=== PATIENT | female | born 1980 | race Caucasian/White ===

== ENCOUNTER 2018-03-18 12:04 | Inpatient (IN) | payer OTHER ==
[2018-03-18] VITALS (30 sets, daily range): BP systolic 102–138; BP diastolic 38–95; PULSE 77–116; TEMP 36.4–37.6; O2SAT 92–100; Ht 162.6 cm; Wt 55.9 kg
[~2018-03-18] VITALS: Ht 162.6 cm; Wt 55.9 kg
--- NOTE | 2018-03-18 12:30 | EMERGENCY ROOM VISIT NOTE ---
History Report prepared by Ute: Dao Gomez Under the Supervision of: Dr. Juan Thornton M.D. First contact with patient: 12:15 Chief Complaint: GI ASSESSMENT Stated Complaint: ILLNESS History of Present Illness The patient is a 37 year old female who presents to the Emergency Room with complaints of a persistent illness that started around 4 days ago. Per the nursing staff, the patient has been having a headache, and has been taking Excedrin for that. The patient then started having diarrhea 4 days ago, and starting 2 days ago, has been nauseated with episodes of vomiting. Per the patient's step-father, the patient's vomit has been very dark in color, with a lot of food particles in it as well. The patient's stool has also been noted to be dark in color. She has been pale in appearance as well. Per the patient's step-father, the patient has been complaining of being lightheaded on-and off over the past few days, and today, the patient has seemed very lethargic. While helping put the patient's clothes on this morning, the patient's step-father noted that the patient may have passed out for a few seconds. The patient has no history of bleeding inside her abdomen. She has been taking some Pepto- Bismol over the past few days. Her blood sugar was noted to be 131 here. The patient currently says that she is very tired. Source of History: patient, family, nursing staff Onset: 4 days ago Position: other (global) Quality: other (illness) Timing: other (persistent) Associated Symptoms: + headache, + nausea, + vomiting, + diarrhea (dark in color), + fatigue Note: Associated symptoms: Pale. May have passed out this morning. Lightheadedness. Review of Systems See HPI for pertinent positives & negatives. A total of 10 systems reviewed and were otherwise negative. Past Medical & Surgical Medical Problems: (1) Mild intellectual disability Family History No pertinent family history Social History Smoking Status: Never Smoker Marital Status: single Housing Status: lives with family Occupation Status: employed Current/Historical Medications Scheduled Mqfvavw-Fhncwznkptmnp-Kqouaust (Excedrin Migraine), 1 DOSE PO UD Bismuth Subsalicylate (Pepto-Bismol), 1 DOSE PO UD Loperamide Hcl (Imodium), 1 DOSE PO UD Allergies Coded Allergies: No Known Allergies (Unverified , 4/18/18) Physical Exam Vital Signs Date Time Temp Pulse Resp B/P (MAP) Pulse Ox O2 Delivery O2 Flow Rate FiO2 03/18/18 13:04 113 28 103/35 03/18/18 12:49 114 31 03/18/18 12:44 95 Room Air 03/18/18 12:34 116 32 03/18/18 12:19 99 27 03/18/18 12:16 36.7 110 25 128/60 95 Room Air 03/18/18 12:13 103 03/18/18 12:08 128/60 Physical Exam GENERAL: Patient is in no acute distress. HEENT: No acute trauma, normocephalic atraumatic, mucous membranes dry, no nasal congestion, no scleral icterus. Dark vomitus staining on her lips. NECK: No stridor, no adenopathy, no meningismus, trachea is midline. LUNGS: Clear to auscultation bilaterally, no wheeze, no rhonchi, breath sounds equal. HEART: Tachycardic with a regular rhythm and a 2/6 systolic murmur. ABDOMEN: Soft, nontender, bowel sounds positive, no hernias, no peritonitis. RECTAL: Maroon-colored stool, heme positive. EXTREMITIES: No cyanosis or edema, full range of motion of all the joints without pain or difficulty, no signs for acute trauma. NEUROLOGIC: Oriented x 3, no acute motor or sensory deficits, no focal weakness. SKIN: Very pale. No rash, no jaundice, no diaphoresis. Medical Decision & Procedures ER Provider Diagnostic Interpretation: X-ray results as stated below per interpretation by me and the radiologist: CHEST ONE VIEW PORTABLE CLINICAL HISTORY: EVALUATE ALTERED MENTAL STATUS/WEAKNESS mental status change COMPARISON STUDY: No previous studies for comparison. FINDINGS: The bones soft tissues and hemidiaphragms are normal. The cardiomediastinal silhouette is normal. The lungs are clear. The pulmonary vasculature is normal. IMPRESSION: Negative chest. The above report was generated using voice recognition software. It may contain grammatical, syntax or spelling errors. Electronically signed by: Jarrod Dean M.D. 03/18/2018 12:37 PM Dictated Date/Time: 03/18/2018 12:37 PM Laboratory Results 03/18/18 12:20 Red Blood Count 1.66, Mean Corpuscular Volume 59.0, Mean Corpuscular Hemoglobin 15.7, Mean Corpuscular Hemoglobin Concent 26.5, Neutrophils (%) (Auto) 90.0, Lymphocytes (%) (Auto) 7.0, Monocytes (%) (Auto) 2.6, Eosinophils (%) (Auto) 0.0 , Basophils (%) (Auto) 0.1, Neutrophils # (Auto) 16.83, Lymphocytes # (Auto) 1.31, Monocytes # (Auto) 0.49, Eosinophils # (Auto) 0.00, Basophils # (Auto) 0.01 03/18/18 12:20 Test 03/18/18 12:20 White Blood Count 18.69 K/uL (4.8-10.8) Red Blood Count 1.66 M/uL (4.2-5.4) Hemoglobin 2.6 g/dL (12.0-16.0) Hematocrit 9.8 % (37-47) Mean Corpuscular Volume 59.0 fL (80-100) Mean Corpuscular Hemoglobin 15.7 pg (25-34) Mean Corpuscular Hemoglobin Concent 26.5 g/dl (32-36) Platelet Count 505 K/uL (130-400) Neutrophils (%) (Auto) 90.0 % Lymphocytes (%) (Auto) 7.0 % Monocytes (%) (Auto) 2.6 % Eosinophils (%) (Auto) 0.0 % Basophils (%) (Auto) 0.1 % Neutrophils # (Auto) 16.83 K/uL (1.4-6.5) Lymphocytes # (Auto) 1.31 K/uL (1.2-3.4) Monocytes # (Auto) 0.49 K/uL (0.11-0.59) Eosinophils # (Auto) 0.00 K/uL (0-0.5) Basophils # (Auto) 0.01 K/uL (0-0.2) Immature Granulocyte % (Auto) 0.3 % Immature Granulocyte # (Auto) 0.05 K/uL (0.00-0.02) Nucleated RBC Absolute Count (auto) 0.04 K/uL (0-0) Nucleated Red Blood Cells % 0.2 % Polychromasia 1+ Hypochromasia PRESENT Anisocytosis PRESENT Microcytosis PRESENT Prothrombin Time 14.1 SECONDS (9.0-12.0) Prothromb Time International Ratio 1.4 (0.9-1.1) Activated Partial Thromboplast Time 20.8 SECONDS (21.0-31.0) Partial Thromboplastin Ratio 0.8 Anion Gap 22.0 mmol/L (3-11) Est Creatinine Clear Calc Drug Dose 43.4 ml/min Estimated GFR () 49.9 Estimated GFR (Non- 43.0 BUN/Creatinine Ratio 22.0 (10-20) Calcium Level 8.4 mg/dl (8.5-10.1) Magnesium Level 2.2 mg/dl (1.8-2.4) Total Bilirubin 0.2 mg/dl (0.2-1) Aspartate Amino Transf (AST/SGOT) 9 U/L (15-37) Alanine Aminotransferase (ALT/SGPT) 16 U/L (12-78) Alkaline Phosphatase 54 U/L (45-117) Troponin I 0.077 ng/ml (0-0.045) Total Protein 5.8 gm/dl (6.4-8.2) Albumin 3.0 gm/dl (3.4-5.0) Globulin 2.8 gm/dl (2.5-4.0) Albumin/Globulin Ratio 1.1 (0.9-2) Thyroid Stimulating Hormone (TSH) 0.008 uIu/ml (0.300-4.500) Free Thyroxine 1.51 ng/dl (0.80-1.60) Human Chorionic Gonadotropin, Qual NEG (NEG) Laboratory results reviewed by me. Medications Administered Medications (Trade) Dose Ordered Sig/Bal Route Start Time Stop Time Status Last Admin Dose Admin Pantoprazole Sodium 80 mg/ Dextrose 120 ml @ 480 mls/hr TODAY@1230 ONCE IV 03/18/18 12:45 03/18/18 12:59 DC 03/18/18 12:56 480 MLS/HR Pantoprazole Sodium 40 mg/ Dextrose 100 ml @ 20 mls/hr Q5H IV 03/18/18 13:00 03/18/18 17:59 DC 03/18/18 12:56 20 MLS/HR Diphenhydramine HCl (Benadryl Inj) 25 mg NOW STAT IV 03/18/18 12:33 03/18/18 12:35 DC 03/18/18 13:33 25 MG ECG Per My Interpretation Indication: vomiting Rate (beats per minute): 104 Rhythm: sinus tachycardia Findings: other (some lateral ST elevation likely consistent with early repolarization, no PVCs) ED Course 1216: The patient was evaluated in room C2B. A complete history and physical exam was performed. 1221: Protonix IV Bolus/Drip 1 ea IV. 1236: A rectal exam revealed maroon-colored stool, heme positive. Upon reexamination the patient is resting. I discussed results and treatment plan with the patient and her step-father. They verbalize agreement and understanding. The patient will be evaluated for further management. 1241: I discussed the patient with Sheryl LEAL. 1243: Discussed the patient's case with Milagro Webb. The patient will be evaluated for further management. 1245: Pantoprazole Sodium 80 mg/Dextrose 120 ml @ 480 mls/hr IV. 1247: I discussed the patient with Juan Zamorano PA-C, [facility] [place] mechanic welder. 1253: I discussed the patient with Dr. Gamaliel Live GI. He says he will probably scope the patient tomorrow. 1300: Pantoprazole Sodium 40 mg/Dextrose 100 ml @ 20 mls/hr IV. 1320: I reevaluated and updated the patient. Medical Decision Differential diagnosis includes but is not limited to upper or lower GI bleeding , dehydration, electrolyte imbalance, anemia, viral illness, UTI, intestinal infection, pneumonia. The patient has a leukocytosis at 18,000, this could be consistent with infection or just the stress of her presentation. The patient is significantly anemic with a hemoglobin of 2.6. Renal panel testing shows renal insufficiency/ failure. No hepatitis. No concerning coagulopathy. The TSH was low but the T4 was normal. Chest film did not show CHF or pneumonia, no free air. EKG showed a sinus tachycardia, there was some early repolarization. Cardiac enzyme testing 1 did show a mild troponin elevation, likely consistent with the stress of her presentation. Rectal exam showed dark maroon stool, the test was heme positive. The patient had coffee appearing emesis staining her lips. The patient presents with vomiting and diarrhea. She was quite pale and is quite anemic. She likely has an upper GI bleed, she has been using a lot of Excedrin lately. The patient was aggressively managed. She received 1.5 L of IV saline, she was ordered for 4 units of packed red blood cells, 2 units were ordered to be given/ started in the ED. She was ordered for IV Benadryl as premedication for the red blood cell transfusion. She received IV Zofran, IV Protonix as a bolus and then was placed on an IV Protonix drip. The patient is critically ill. I spoke with the patient and her stepfather. I spoke with case management. I had a discussion with the agriculture technician on- call, the ICU attending and the on-call hospitalist. Patient seems to be improving with the treatment noted above. Medication Reconcilliation Current Medication List: was personally reviewed by me Blood Pressure Screening Patient's blood pressure: Normal blood pressure Consults Time Called: 1240 Consulting Physician: Milagro Webb Returned Call: 1243 Discussed the patient's case with Milagro Webb. The patient will be evaluated for further management. Additional Consults: Time Called: 1238 Consulted Physician: Sheryl LEAL Returned Call: 1241 Additional Comments: I discussed the patient with Sheryl LEAL. Time Called: 1244 Consulted Physician: KRISTOFER Warren PA-C mechanic welder Returned Call: 1247 Additional Comments: I discussed the patient with KRISTOFER Warren PA-C mechanic welder. Impression Primary Impression: GI bleeding Additional Impressions: Severe anemia Nausea, vomiting and diarrhea Syncope Critical Care I have personally spent greater than 40 minutes of critical care time in the direct management of this patient. This includes bedside care, interpretation of diagnostic studies, and testing, discussion with consultants, patient, and family members, and other required patient management activities. This 40 minutes is in excess of all separately billable procedures. Scribe Attestation The scribe's documentation has been prepared under my direction and personally reviewed by me in its entirety. I confirm that the note above accurately reflects all work, treatment, procedures, and medical decision making performed by me. Departure Information Dispostion Being Evaluated By Hospitalist Referrals Jeb Friedman III, M.D. (PCP) Patient Instructions My [facility] Problem Qualifiers Primary Impression: GI bleeding GI bleed type/associated pathology: unspecified gastrointestinal hemorrhage type Qualified Codes: K92.2 - Gastrointestinal hemorrhage, unspecified Additional Impressions: Syncope Syncope type: unspecified Qualified Codes: R55 - Syncope and collapse
[2018-03-18] MEDS ORDERED: DiphenhydrAMINE HCL 50 MG/ML VIAL IV STA (12:33)
[2018-03-18 12:39] LABS: HEMATOCRIT 9.8 % (37-47); HEMOGLOBIN 2.6 g/dL (12.0-16.0); MEAN CORPUSCULAR HEMOGLOBIN 15.7 pg (25-34); MEAN CORPUSCULAR HGB CONC 26.5 g/dl (32-36); NUCLEATED RED BLOOD CELL ABS 0.04 K/uL (0-0); PLATELET COUNT 505 K/uL (130-400); WHITE BLOOD COUNT 18.69 K/uL (4.8-10.8)
--- NOTE | 2018-03-18 12:39 | DIAGNOSTIC IMAGING REPORT ---
CHEST ONE VIEW PORTABLE CLINICAL HISTORY: EVALUATE ALTERED MENTAL STATUS/WEAKNESS mental status change COMPARISON STUDY: No previous studies for comparison. FINDINGS: The bones soft tissues and hemidiaphragms are normal. The cardiomediastinal silhouette is normal. The lungs are clear. The pulmonary vasculature is normal. IMPRESSION: Negative chest. The above report was generated using voice recognition software. It may contain grammatical, syntax or spelling errors. Electronically signed by: Jarrod Dean M.D. 03/18/2018 12:37 PM Dictated Date/Time: 03/18/2018 12:37 PM
[2018-03-18 12:44] LABS: INR 1.4 (0.9-1.1); PTT PATIENT 20.8 SECONDS (21.0-31.0)
[2018-03-18] MEDS ORDERED: PANTOprazole INJ 80 MG in DEXTROSE 5% 100ML IV ONE (12:45)
[2018-03-18 12:50] LABS: CALCIUM 8.4 mg/dl (8.5-10.1); CREATININE 1.52 mg/dl (0.60-1.20); POTASSIUM 3.7 mmol/L (3.5-5.1)
[2018-03-18] MEDS ORDERED: SODIUM CHLORIDE 0.9% 500ML 500 ML IV STA (12:57)
[2018-03-18] MEDS ORDERED: SODIUM CHLORIDE 0.9% 1000ML 1,000 ML IV STA (12:57)
[2018-03-18] MEDS ORDERED: PANTOprazole INJ 40 MG in DEXTROSE 5% 100ML IV SCH (13:00)
[2018-03-18] MEDS ORDERED: ONDANSETRON INJ 2 MG/ML 2 ML VIAL IV STA (13:02)
[2018-03-18 13:04] LABS: TOTAL PROTEIN 5.8 gm/dl (6.4-8.2)
[2018-03-18 13:07] LABS: BASO % 0.1 %; BASO ABS # 0.01 K/uL (0-0.2); IG# 0.05 K/uL (0.00-0.02); LYMPH ABS # 1.31 K/uL (1.2-3.4); MONO % 2.6 %; MONO ABS # 0.49 K/uL (0.11-0.59); NEUT ABS # 16.83 K/uL (1.4-6.5)
[2018-03-18] MEDS ORDERED: ICU PROTOCOL FOR HYPERGLYCEMIA PRN (13:15)
[2018-03-18] MEDS ORDERED: ASPI-390 PO (13:41)
[2018-03-18] MEDS ORDERED: IMD/2 PO (13:41)
[2018-03-18] MEDS ORDERED: BISM262S7 PO (13:41)
[2018-03-18] MEDS: SODIUM CHLORIDE 0.9% 1000ML 1,000 ML IV SCH ×2 (13:58→18:07)
--- NOTE | 2018-03-18 14:29 | History and Physical ---
History & Physical Date & Time of Service: Mar 18, 2018 ~ 13:00 Chief Complaint: Altered mental status, vomiting, diarrhea Primary Care Physician: Jeb Friedman III, M.D. History of Present Illness 37-year-old female who presents to the ER with altered mental status, vomiting, diarrhea. History is obtained from patient's father who is the bedside. Patient does have a mild underlying intellectual disability. He reports that over the past couple days patient has not felt well and has reported lightheadedness, dizziness, nausea, vomiting, diarrhea. He reports she has had several episodes of emesis. He describes it as dark and coffee-ground like. Her stools have also been very dark/black as well. This morning he found the patient and reports that she was extremely weak and also was not responding well. She takes a lot of Excedrin Migraine for headaches. Also reports she has been taking a lot of Mylanta over the past couple weeks for GI upset. During exam, patient is lethargic but arouses to verbal stimuli. She responds to simple yes/no questions. She denies fever and chills. No chest pain or shortness of breath. She denies urinary symptoms. In the ED, patient is found to have a hemoglobin of 2.6. Blood pressures have been relatively stable and heart rate has been in the 110's to 120s. Patient was given IVF and started a Protonix drip. She was also typed and crossed for blood. Past Medical/Surgical History Medical Problems: (1) Mild intellectual disability Family History FH: HTN (hypertension) MOTHER FH: skin cancer FATHER Social History Smoking Status: Never Smoker Alcohol Use: none Marital Status: single Housing status: lives with family Occupational Status: employed Immunizations History of Tetanus Vaccine?: Yes Tetanus Immunization Date: Feb 24, 2007 History of Hepatitis B Vaccine: Yes Hepatitis Immunization Date: Nov 18, 1995 Allergies Coded Allergies: No Known Allergies (Unverified , 03/18/18) Home Medications Scheduled Ktfjbqx-Qbsudwsbiispk-Uhlywctp (Excedrin Migraine), 1 DOSE PO UD Bismuth Subsalicylate (Pepto-Bismol), 1 DOSE PO UD Loperamide Hcl (Imodium), 1 DOSE PO UD Review of Systems ROS per HPI, all other systems reviewed and negative Physical Exam Vital Signs Date Time Temp Pulse Resp B/P (MAP) Pulse Ox O2 Delivery O2 Flow Rate FiO2 03/18/18 13:57 36.4 116 20 112/38 97 2.0 03/18/18 13:56 36.4 115 03/18/18 13:46 36.8 115 30 112/38 03/18/18 13:04 113 28 103/35 03/18/18 12:49 114 31 03/18/18 12:44 95 Room Air 03/18/18 12:34 116 32 03/18/18 12:19 99 27 03/18/18 12:16 36.7 110 25 128/60 95 Room Air 03/18/18 12:13 103 03/18/18 12:08 128/60 General Appearance: WD/WN, + moderate distress Head: normocephalic, atraumatic Eyes: normal inspection, EOMI, sclerae normal ENT: hearing grossly normal, + pertinent finding (Mucous membranes dry) Neck: supple, no JVD, trachea midline Respiratory/Chest: lungs clear, normal breath sounds, no respiratory distress Cardiovascular: no edema, normal peripheral pulses, + tachycardia (Regular rhythm) Abdomen/GI: normal bowel sounds, non tender, soft, no organomegaly Extremities/Musculoskelatal: normal inspection, no calf tenderness, normal capillary refill Neurologic/Psych: no motor/sensory deficits, oriented x 3, + pertinent finding (Mildly lethargic, arouses easily to verbal stimuli, answers simple yes/no questions) Skin: warm/dry, + pallor Diagnostics Laboratory Results Results Past 24 Hours Test 03/18/18 12:20 Range/Units White Blood Count 18.69 4.8-10.8 K/uL Red Blood Count 1.66 4.2-5.4 M/uL Hemoglobin 2.6 12.0-16.0 g/dL Hematocrit 9.8 37-47 % Mean Corpuscular Volume 59.0 80-100 fL Mean Corpuscular Hemoglobin 15.7 25-34 pg Mean Corpuscular Hemoglobin Concent 26.5 32-36 g/dl Platelet Count 505 130-400 K/uL Neutrophils (%) (Auto) 90.0 % Lymphocytes (%) (Auto) 7.0 % Monocytes (%) (Auto) 2.6 % Eosinophils (%) (Auto) 0.0 % Basophils (%) (Auto) 0.1 % Neutrophils # (Auto) 16.83 1.4-6.5 K/uL Lymphocytes # (Auto) 1.31 1.2-3.4 K/uL Monocytes # (Auto) 0.49 0.11-0.59 K/uL Eosinophils # (Auto) 0.00 0-0.5 K/uL Basophils # (Auto) 0.01 0-0.2 K/uL Immature Granulocyte % (Auto) 0.3 % Immature Granulocyte # (Auto) 0.05 0.00-0.02 K/uL Nucleated RBC Absolute Count (auto) 0.04 0-0 K/uL Nucleated Red Blood Cells % 0.2 % Polychromasia 1+ Hypochromasia PRESENT Anisocytosis PRESENT Microcytosis PRESENT Prothrombin Time 14.1 9.0-12.0 SECONDS Prothromb Time International Ratio 1.4 0.9-1.1 Activated Partial Thromboplast Time 20.8 21.0-31.0 SECONDS Partial Thromboplastin Ratio 0.8 Sodium Level 138 136-145 mmol/L Potassium Level 3.7 3.5-5.1 mmol/L Chloride Level 103 98-107 mmol/L Carbon Dioxide Level 13 21-32 mmol/L Anion Gap 22.0 3-11 mmol/L Blood Urea Nitrogen 34 7-18 mg/dl Creatinine 1.52 0.60-1.20 mg/dl Est Creatinine Clear Calc Drug Dose 43.4 ml/min Estimated GFR () 49.9 Estimated GFR (Non- 43.0 BUN/Creatinine Ratio 22.0 10-20 Random Glucose 144 70-99 mg/dl Calcium Level 8.4 8.5-10.1 mg/dl Magnesium Level 2.2 1.8-2.4 mg/dl Total Bilirubin 0.2 0.2-1 mg/dl Aspartate Amino Transf (AST/SGOT) 9 15-37 U/L Alanine Aminotransferase (ALT/SGPT) 16 12-78 U/L Alkaline Phosphatase 54 45-117 U/L Troponin I 0.077 0-0.045 ng/ml Total Protein 5.8 6.4-8.2 gm/dl Albumin 3.0 3.4-5.0 gm/dl Globulin 2.8 2.5-4.0 gm/dl Albumin/Globulin Ratio 1.1 0.9-2 Thyroid Stimulating Hormone (TSH) 0.008 0.300-4.500 uIu/ml Free Thyroxine 1.51 0.80-1.60 ng/dl Human Chorionic Gonadotropin, Qual NEG NEG Microbiology Results 03/18/18 MRSA DNA Surveillance Screen, Received Pending Diagnostic Radiology CXR IMPRESSION: Negative chest. Impression Assessment and Plan PROFOUND ANEMIA UPPER GI BLEED -Admit to ICU -Patient presenting with altered mental status, vomiting, diarrhea; in the ED found to have a hemoglobin of 2.6 -Per father's report, patient has been taking several doses of Excedrin Migraine for headaches; suspect NSAID induced gastritis -Heart rate elevated in the 110's to 120s, BP currently stable -GI notified by ED staff -Has been typed and crossed for 6 units, begin transfusions BRIGITTE -Protonix drip -Case discussed with Dr. Mcelroy ELEVATED TROPONIN -Mildly elevated at 0.077 -Likely demand ischemia from profound anemia -Will continue to cycle cardiac enzymes -EKG shows early repolarization changes, again likely due to profound anemia ABNORMAL TSH -Noted normal free T4 -Recommend rechecking once acute illness has resolved DVT PROPHYLAXIS -SCDs due to profound anemia DISPOSITION -In my clinical judgment this beneficiary meets acute admission criteria, established by [facility], that includes being hospitalized through two midnights. ADDENDUM: I have seen and examined the patient and agree with the assessment and plan as above. The patient is going to the ICU for resuscitation with scope by GI soon after. Likely cause NSAIDs vs poss heavy ETOH use (per father has some h/o binge drinking in the past), and patient has been taking Imodium/ Pepto likely at high amounts to treat intermittent diarrhea. Pepto is a salicylate and could be contributing to NSAID load here. Apprec ICU management. DO Kasie Ochoa minutes of critical care time includes assessment of patient, discussion with family and staff, review of records and lab/study review. Resuscitation Status VTE Prophylaxis Will order VTE Prophylaxis: Yes Note Total Time: Critical Care 30 - 74 minutes
--- NOTE | 2018-03-18 14:56 | GASTROINTESTINAL CONSULTATION ---
DATE OF CONSULTATION: 03/18/2018 REASON FOR CONSULTATION: Severe anemia and GI bleeding. HISTORY OF PRESENT ILLNESS: The patient is a 37-year-old female who has been taking Excedrin almost on a daily basis for several years for headaches. Over the last 4 days, she has been taking it more than once a day. She has been experiencing worsening headaches and weakness and today was passing out and her father brought her to the hospital. She really is not complaining of any significant abdominal pain, although she has been taking Pepto-Bismol which has turned her stool somewhat black. She did vomit a little bit of blood at home which was dark in color. She has not had any previous episodes of similar symptoms. PAST MEDICAL HISTORY: Remarkable only for learning disability. MEDICATION AT HOME: Excedrin as needed. ALLERGIES: None. FAMILY HISTORY: Negative. SOCIAL HISTORY: The patient has got a learning disability, but she does work, lives at home. She is not . REVIEW OF SYSTEMS: Positive for fatigue. PHYSICAL EXAMINATION: GENERAL: The patient is quite pale, lying in bed. VITAL SIGNS: Blood pressure is 128/60, pulse 110, temperature 36.7, respirations 25, room air saturations 95%. HEENT: Conjunctivae and mucous membranes in her mouth are very very pale. SKIN: Pale. LUNGS: Clear. HEART: Tachycardic. ABDOMEN: Soft. There are no scars. No masses, tenderness, or hepatosplenomegaly. RECTAL: Exam in the Emergency Room showed marooned stool, which was heme positive. NEUROLOGIC: Nonfocal. LABORATORIES: Remarkable for hemoglobin of 2.6, platelets 505,000, white count 18.69, BUN 32, creatinine 1.52. The patient is scheduled to receive 3 units of red blood cells and has been started on IV fluids and pantoprazole. IMPRESSION: The patient most likely has an upper gastrointestinal bleed, probably from an ulcer which has been developing over a long period of time as her MCV is low at 59. This is probably related to her Excedrin, which contains aspirin. At this point, the Excedrin is being held. She has been started on Protonix. As long as she remains stable, we will continue to resuscitate her with IV fluids, blood products, and Protonix and schedule her for an EGD tomorrow for further evaluation.
--- NOTE | 2018-03-18 16:07 | Critical Care Consultation ---
Critical Care Consultation Date of Consultation: Mar 18, 2018. Attending Physician: Carlos Virk M.D. Reason for Consultation: GI bleeding. History of Present Illness Dear Milagro: Thank you for your kind referral of Mr. Posada to ICU. This is a 37-year-old female with no significant past medical history, she does have apparently in to the actual incapability, has been brought to the ED by her parents after she has been having nausea vomiting with coffee-ground material and melanotic stool. The patient has been feeling sick for the past few days and apparently she has been taking Excedrin for headache and Mylanta for epigastric pain. The patient on arrival to the ED she was found to be lethargic and pale, her blood pressure has been maintained but she was tachycardic. The patient is a poor historian however she denies any pain at the moment. Her lab work revealed hemoglobin of 2.9 and the patient was started on type and cross and blood transfusion and admitted to the ICU for further management. Her blood pressure has been in the normal range. The patient in the ICU denies any pain, appears very lethargic, very pale as well, did not have any bowel movement, her blood pressure has been maintained and 118/80 with a heart rate of 91. The patient did not have any syncope, palpitation, headache, or near syncopal episodes. Family History FH: HTN (hypertension) MOTHER FH: skin cancer FATHER Social History Smoking Status: Never Smoker Alcohol Use: none Marital Status: single Housing Status: lives with family Occupation Status: employed Allergies Coded Allergies: No Known Allergies (Unverified , 03/18/18) Home Medications Scheduled Ffppsgb-Txyycafeufuoh-Lwgmmtiw (Excedrin Migraine), 1 DOSE PO UD Bismuth Subsalicylate (Pepto-Bismol), 1 DOSE PO UD Loperamide Hcl (Imodium), 1 DOSE PO UD Current Inpatient Medications Current Inpatient Medications Medications (Trade) Dose Ordered Sig/Bal Route Start Time Stop Time Status Last Admin Dose Admin Pantoprazole Sodium 40 mg/ Dextrose 100 ml @ 20 mls/hr Q5H IV 03/18/18 13:00 03/18/18 17:59 03/18/18 12:56 20 MLS/HR Miscellaneous Information (Icu Protocol For Hyperglycemia) 1 ea PRN PRN N/A 03/18/18 13:15 03/20/18 13:14 Sodium Chloride 1,000 ml @ 125 mls/hr Q8H IV 03/18/18 13:58 04/17/18 13:57 Pantoprazole Sodium 40 mg/ Dextrose 100 ml @ 20 mls/hr Q5H IV 03/18/18 18:00 04/17/18 17:59 Review of Systems Constitutional: No fever, No chills, No sweats, No weight loss, No weakness, No fatigue, No problem reported Eyes: No worsening of vision, No eye pain, No redness, No discharge, No diplopia, No problem reported ENT: No hearing loss, No unusual epistaxis, No nasal symptoms, No sore throat, No tinnitus, No dental problems, No trouble swallowing, No problem reported Respiratory: No cough, No sputum, No wheezing, No shortness of breath, No dyspnea on exertion, No dyspnea at rest, No hemoptysis, No problem reported Cardiovascular: No chest pain, No orthopnea, No PND, No edema, No claudication , No palpitations, No problem reported Abdomen: + pain (Epigastric but resolved), + vomiting (Coffee-ground material) , + GI bleeding Genitourinary - Female: No dysuria, No urinary frequency, No urinary urgency, No urinary incontinence, No urinary retention, No hematuria, No dysmenorrhea, No menorrhagia, No metrorrhagia, No rash, No vaginal bleeding, No vaginal discharge, No vaginal itching, No vulvodynia, No , No problem reported Neurologic: + weakness, No memory loss, No paralysis, No numbness/tingling, No vertigo, No balance problems, No problem reported Allergic / Immunologic: No environmental allergies, No seasonal allergies, No pet sensitivities, No food allergies, No hives, No frequent infections, No poor healing, No prolonged convalescence, No problem reported Physical Exam Date Time Temp Pulse Resp B/P (MAP) Pulse Ox O2 Delivery O2 Flow Rate FiO2 03/18/18 14:31 107 19 105/64 (78) 100 03/18/18 14:30 110 21 100 03/18/18 14:30 36.4 112 20 105/64 99 2.0 03/18/18 14:17 36.6 116 22 112/38 99 Nasal Cannula 2.0 4/18/18 14:16 103 20 102/67 (79) 100 03/18/18 14:15 104 20 100 03/18/18 14:01 112 24 138/51 (80) 100 03/18/18 14:00 110 24 100 03/18/18 13:57 36.4 116 20 112/38 97 2.0 03/18/18 13:56 36.4 115 03/18/18 13:50 114 26 112/38 (62) 92 03/18/18 13:46 36.8 115 30 112/38 03/18/18 13:04 113 28 103/35 03/18/18 12:49 114 31 03/18/18 12:44 95 Room Air 03/18/18 12:34 116 32 03/18/18 12:19 99 27 03/18/18 12:16 36.7 110 25 128/60 95 Room Air 03/18/18 12:13 103 03/18/18 12:08 128/60 General Appearance: uncomfortable Eyes: EOMI, other (Pale) ENT: normal throat exam Neck: trachea midline Respiratory: breath sounds normal, clear to auscultation Cardiovasular: regular rate/rhythm, normal S1S2, no M/G/R (Systolic ejection murmur.) Abdomen: non tender, no masses, no guarding Upper Extremities: no edema Lower Extremities: no edema Neuro: alert, normal motor exam Psychiatric: flat affect Laboratory Results Last 24 Hours Test 03/18/18 12:20 White Blood Count 18.69 K/uL Red Blood Count 1.66 M/uL Hemoglobin 2.6 g/dL Hematocrit 9.8 % Mean Corpuscular Volume 59.0 fL Mean Corpuscular Hemoglobin 15.7 pg Mean Corpuscular Hemoglobin Concent 26.5 g/dl Platelet Count 505 K/uL Neutrophils (%) (Auto) 90.0 % Lymphocytes (%) (Auto) 7.0 % Monocytes (%) (Auto) 2.6 % Eosinophils (%) (Auto) 0.0 % Basophils (%) (Auto) 0.1 % Neutrophils # (Auto) 16.83 K/uL Lymphocytes # (Auto) 1.31 K/uL Monocytes # (Auto) 0.49 K/uL Eosinophils # (Auto) 0.00 K/uL Basophils # (Auto) 0.01 K/uL Immature Granulocyte % (Auto) 0.3 % Immature Granulocyte # (Auto) 0.05 K/uL Nucleated RBC Absolute Count (auto) 0.04 K/uL Nucleated Red Blood Cells % 0.2 % Polychromasia 1+ Hypochromasia PRESENT Anisocytosis PRESENT Microcytosis PRESENT Prothrombin Time 14.1 SECONDS Prothromb Time International Ratio 1.4 Activated Partial Thromboplast Time 20.8 SECONDS Partial Thromboplastin Ratio 0.8 Sodium Level 138 mmol/L Potassium Level 3.7 mmol/L Chloride Level 103 mmol/L Carbon Dioxide Level 13 mmol/L Anion Gap 22.0 mmol/L Blood Urea Nitrogen 34 mg/dl Creatinine 1.52 mg/dl Est Creatinine Clear Calc Drug Dose 43.4 ml/min Estimated GFR () 49.9 Estimated GFR (Non- 43.0 BUN/Creatinine Ratio 22.0 Random Glucose 144 mg/dl Calcium Level 8.4 mg/dl Magnesium Level 2.2 mg/dl Total Bilirubin 0.2 mg/dl Aspartate Amino Transf (AST/SGOT) 9 U/L Alanine Aminotransferase (ALT/SGPT) 16 U/L Alkaline Phosphatase 54 U/L Troponin I 0.077 ng/ml Total Protein 5.8 gm/dl Albumin 3.0 gm/dl Globulin 2.8 gm/dl Albumin/Globulin Ratio 1.1 Thyroid Stimulating Hormone (TSH) 0.008 uIu/ml Free Thyroxine 1.51 ng/dl Human Chorionic Gonadotropin, Qual NEG Diagnostic Results Labs were reviewed which showed hematocrit of less than 10 and BUN/creatinine has been stable. Troponin is positive but likely in the event of lack of blood. Chest x-ray without any pathology. Assessment & Plan 1. Upper GI bleeding, likely peptic ulcer disease. 2. Significant blood loss appeared to be chronic rather than acute, I would expect the patient to be hypotensive and tachycardic. However the patient did not have any instability. 3. Most likely related to NSAID as she is taking Excedrin. Plan: 1. I will start the patient blood transfusion after 6 units. 2. We will trend the hematocrit and hemoglobin every 6 hours. 3. No need to trend the troponin as it is secondary to the event that she had. 4. Appreciate GI input. 5. Protonix drip. 6. IV fluids if needed. For blood pressure support. 7. Plan for EGD in the morning. 8. Other blood products after the first 6 units of RBC will be infused if needed. Case discussed with the staff and details, critical care time spent with the patient was 45 minutes.
[2018-03-18] MEDS: PANTOprazole INJ 40 MG in DEXTROSE 5% 100ML IV SCH (18:07)
[2018-03-18 22:13] LABS: HEMATOCRIT 22.1 % (37-47); HEMOGLOBIN 7.2 g/dL (12.0-16.0)
[2018-03-19] VITALS (25 sets, daily range): BP systolic 83–112; BP diastolic 49–74; PULSE 57–78; TEMP 36.6–37.1; O2SAT 99–100
[2018-03-19] MEDS: PANTOprazole INJ 40 MG in DEXTROSE 5% 100ML IV SCH ×5 (00:12→22:39)
[2018-03-19 02:31] LABS: HEMOGLOBIN 8.2 g/dL (12.0-16.0)
[2018-03-19 05:22] LABS: INR 1.2 (0.9-1.1)
[2018-03-19 05:36] LABS: HEMATOCRIT 22.6 % (37-47); HEMOGLOBIN 7.5 g/dL (12.0-16.0); MEAN CORPUSCULAR HEMOGLOBIN 26.2 pg (25-34); MEAN CORPUSCULAR HGB CONC 33.2 g/dl (32-36); MEAN PLATELET VOLUME 9.1 fL (7.4-10.4); PLATELET COUNT 229 K/uL (130-400); RED CELL DISTRIBUTION WIDTH CV 21.9 % (11.5-14.5); WHITE BLOOD COUNT 11.69 K/uL (4.8-10.8)
[2018-03-19 05:52] LABS: CALCIUM 7.3 mg/dl (8.5-10.1); CKMB 2.2 ng/ml (0.5-3.6); CREATININE 0.77 mg/dl (0.60-1.20); PHOSPHORUS 3.2 mg/dl (2.5-4.9)
[2018-03-19] MEDS: SODIUM CHLORIDE 0.9% 1000ML 1,000 ML IV SCH ×2 (07:35→17:18)
[2018-03-19 11:57] LABS: ISTAT CREATININE 1.1 mg/dl (0.6-1.3); ISTAT IONIZED CALCIUM 1.11 mmol/l (1.12-1.32); ISTAT POTASSIUM 3.9 mEq/L (3.3-5.0); ISTAT SODIUM 136 mEq/L (135-144)
--- NOTE | 2018-03-19 12:00 | Progress Note ---
Internal Med Progress Note Date of Service: Mar 19, 2018. Provider Documentation: SUBJECTIVE: The patient was seen and examined in ICU Complains of tiredness and fatigue Denies any chest pain palpitation, any abdominal pain nausea and/or vomiting Used Excedrin and Pepto-Bismol for symptomatic relief OBJECTIVE: Vital Signs-as noted below Exam: General-looks pale but no apparent distress Eyes-normal ENT-normal Neck-supple Lungs-clear to auscultate bilaterally Heart-S1-S2 regular, no murmur appreciated Abdomen-benign, mildly tender in epigastrium, bowel sounds present Extremities-no edema Neuro-AAA 3 Generally weak but no focal neuro deficit Lab data as noted below. ASSESSMENT & PLAN: PROFOUND ANEMIA UPPER GI BLEED-NSAID induced -Patient presenting with altered mental status, vomiting, diarrhea; in the ED found to have a hemoglobin of 2.6 -Per father's report, patient has been taking several doses of Excedrin Migraine for headaches; suspect NSAID induced gastritis -Protonix drip -Received 4 units of PRBC and going to have 2 more units-Hb 7.5 -03/19/18 -Appreciate GI evaluation -Endoscopy this afternoon ELEVATED TROPONIN -Mildly elevated at 0.077 -Likely demand ischemia from profound anemia -Will continue to cycle cardiac enzymes-minimally high -EKG shows early repolarization changes, again likely due to profound anemia -Doubt any ACS ABNORMAL TSH -Noted normal free T4 -Recommend rechecking once acute illness has resolved DVT PROPHYLAXIS -SCDs due to profound anemia DISPOSITION -stable in ICU -awaiting EGD Vital Signs: Date Time Temp Pulse Resp B/P (MAP) Pulse Ox O2 Delivery O2 Flow Rate FiO2 03/19/18 11:09 36.8 65 18 101/60 99 03/19/18 10:50 36.8 71 18 102/59 100 03/19/18 10:36 36.6 63 16 99/56 100 03/19/18 09:01 66 13 87/51 (63) 99 Room Air 03/19/18 08:00 Room Air 03/19/18 08:00 36.8 68 14 105/54 (71) 99 Room Air 03/19/18 07:00 67 19 92/49 (63) 99 Room Air 03/19/18 06:01 71 14 107/60 (76) 100 Room Air 03/19/18 05:01 65 12 97/60 (72) 99 Room Air 03/19/18 04:01 36.9 73 14 103/65 (78) 100 Room Air 03/19/18 04:00 Room Air 03/19/18 03:01 77 17 107/61 (76) 100 Room Air 03/19/18 02:01 78 19 106/64 (78) 100 Room Air 03/19/18 02:00 76 18 100 03/19/18 01:30 37.1 78 16 108/62 100 03/19/18 00:30 36.8 75 20 112/67 100 03/19/18 00:01 Room Air 03/19/18 00:00 37.1 77 17 109/71 100 03/18/18 23:28 36.4 77 16 112/70 99 03/18/18 23:09 36.9 101 22 120/72 100 03/18/18 22:00 84 19 113/74 (87) 99 Room Air 03/18/18 20:15 93 18 99 03/18/18 20:00 Room Air 03/18/18 20:00 37.0 88 19 125/84 100 03/18/18 19:00 37.6 85 20 123/80 100 03/18/18 18:30 37.0 90 15 124/81 100 03/18/18 18:16 87 18 118/77 (91) 100 03/18/18 18:00 37.3 92 18 124/85 (98) 100 Room Air 03/18/18 17:31 90 19 128/95 (106) 100 03/18/18 17:01 37.4 89 18 123/81 (95) 100 Room Air 03/18/18 16:46 87 18 120/85 (97) 100 Room Air 03/18/18 16:31 37.5 88 18 122/83 (96) 100 Room Air 03/18/18 16:16 91 15 117/82 (94) 100 Room Air 03/18/18 16:01 36.9 90 18 118/80 (93) 100 Room Air 03/18/18 16:00 Room Air 03/18/18 15:46 100 13 116/75 (89) 100 18 15:31 36.9 96 16 115/84 (94) 100 18 15:16 93 18 114/84 (94) 100 03/18/18 15:01 95 18 113/78 (90) 100 03/18/18 14:31 107 19 105/64 (78) 100 03/18/18 14:30 110 21 100 03/18/18 14:30 36.4 112 20 105/64 99 2.0 03/18/18 14:17 36.6 116 22 112/38 99 Nasal Cannula 2.0 03/18/18 14:16 103 20 102/67 (79) 100 03/18/18 14:15 104 20 100 03/18/18 14:01 112 24 138/51 (80) 100 03/18/18 14:00 110 24 100 03/18/18 13:57 36.4 116 20 112/38 97 2.0 03/18/18 13:56 36.4 115 03/18/18 13:50 114 26 112/38 (62) 92 03/18/18 13:46 36.8 115 30 112/38 03/18/18 13:04 113 28 103/35 03/18/18 12:49 114 31 03/18/18 12:44 95 Room Air 03/18/18 12:34 116 32 03/18/18 12:19 99 27 03/18/18 12:16 36.7 110 25 128/60 95 Room Air 03/18/18 12:13 103 03/18/18 12:08 128/60 Lab Results: Results Past 24 Hours Test 03/18/18 12:20 03/18/18 21:11 03/18/18 21:15 03/19/18 00:07 Range/Units White Blood Count 18.69 4.8-10.8 K/uL Red Blood Count 1.66 4.2-5.4 M/uL Hemoglobin 2.6 7.2 12.0-16.0 g/dL Hematocrit 9.8 22.1 37-47 % Mean Corpuscular Volume 59.0 80-100 fL Mean Corpuscular Hemoglobin 15.7 25-34 pg Mean Corpuscular Hemoglobin Concent 26.5 32-36 g/dl Platelet Count 505 130-400 K/uL Neutrophils (%) (Auto) 90.0 % Lymphocytes (%) (Auto) 7.0 % Monocytes (%) (Auto) 2.6 % Eosinophils (%) (Auto) 0.0 % Basophils (%) (Auto) 0.1 % Neutrophils # (Auto) 16.83 1.4-6.5 K/uL Lymphocytes # (Auto) 1.31 1.2-3.4 K/uL Monocytes # (Auto) 0.49 0.11-0.59 K/uL Eosinophils # (Auto) 0.00 0-0.5 K/uL Basophils # (Auto) 0.01 0-0.2 K/uL Immature Granulocyte % (Auto) 0.3 % Immature Granulocyte # (Auto) 0.05 0.00-0.02 K/uL Nucleated RBC Absolute Count (auto) 0.04 0-0 K/uL Nucleated Red Blood Cells % 0.2 % Polychromasia 1+ Hypochromasia PRESENT Anisocytosis PRESENT Microcytosis PRESENT Prothrombin Time 14.1 9.0-12.0 SECONDS Prothromb Time International Ratio 1.4 0.9-1.1 Activated Partial Thromboplast Time 20.8 21.0-31.0 SECONDS Partial Thromboplastin Ratio 0.8 Sodium Level 138 136-145 mmol/L Potassium Level 3.7 3.5-5.1 mmol/L Chloride Level 103 98-107 mmol/L Carbon Dioxide Level 13 21-32 mmol/L Anion Gap 22.0 3-11 mmol/L Blood Urea Nitrogen 34 7-18 mg/dl Creatinine 1.52 0.60-1.20 mg/dl Est Creatinine Clear Calc Drug Dose 43.4 ml/min Estimated GFR () 49.9 Estimated GFR (Non- 43.0 BUN/Creatinine Ratio 22.0 10-20 Random Glucose 144 70-99 mg/dl Calcium Level 8.4 8.5-10.1 mg/dl Magnesium Level 2.2 1.8-2.4 mg/dl Total Bilirubin 0.2 0.2-1 mg/dl Aspartate Amino Transf (AST/SGOT) 9 15-37 U/L Alanine Aminotransferase (ALT/SGPT) 16 12-78 U/L Alkaline Phosphatase 54 45-117 U/L Troponin I 0.077 0-0.045 ng/ml Total Protein 5.8 6.4-8.2 gm/dl Albumin 3.0 3.4-5.0 gm/dl Globulin 2.8 2.5-4.0 gm/dl Albumin/Globulin Ratio 1.1 0.9-2 Thyroid Stimulating Hormone (TSH) 0.008 0.300-4.500 uIu/ml Free Thyroxine 1.51 0.80-1.60 ng/dl Human Chorionic Gonadotropin, Qual NEG NEG Bedside Glucose 106 102 70-90 mg/dl Test 03/19/18 01:58 03/19/18 04:44 03/19/18 04:57 Range/Units Hemoglobin 8.2 7.5 12.0-16.0 g/dL Hematocrit 25.0 22.6 37-47 % Creatine Kinase MB Ratio 2.2 0-3.0 White Blood Count 11.69 4.8-10.8 K/uL Red Blood Count 2.86 4.2-5.4 M/uL Mean Corpuscular Volume 79.0 80-100 fL Mean Corpuscular Hemoglobin 26.2 25-34 pg Mean Corpuscular Hemoglobin Concent 33.2 32-36 g/dl RDW Standard Deviation 63.0 36.4-46.3 fL RDW Coefficient of Variation 21.9 11.5-14.5 % Platelet Count 229 130-400 K/uL Mean Platelet Volume 9.1 7.4-10.4 fL Platelet Estimate NORMAL Prothrombin Time 12.2 9.0-12.0 SECONDS Prothromb Time International Ratio 1.2 0.9-1.1 Sodium Level 139 136-145 mmol/L Potassium Level 4.0 3.5-5.1 mmol/L Chloride Level 113 98-107 mmol/L Carbon Dioxide Level 22 21-32 mmol/L Anion Gap 4.0 3-11 mmol/L Blood Urea Nitrogen 40 7-18 mg/dl Creatinine 0.77 0.60-1.20 mg/dl Est Creatinine Clear Calc Drug Dose 84.1 ml/min Estimated GFR () 113.5 Estimated GFR (Non- 97.9 BUN/Creatinine Ratio 52.7 10-20 Random Glucose 95 70-99 mg/dl Calcium Level 7.3 8.5-10.1 mg/dl Phosphorus Level 3.2 2.5-4.9 mg/dl Magnesium Level 2.0 1.8-2.4 mg/dl Total Creatine Kinase 102 26-192 U/L Creatine Kinase MB 2.2 0.5-3.6 ng/ml Troponin I 0.439 0-0.045 ng/ml Microbiology Results 03/18/18 MRSA DNA Surveillance Screen - Final, Complete Specimen Negative for MRSA by DNA Probe
[2018-03-19] MEDS ORDERED: LIDOCAINE HCL 2% 2 ML VIAL (20MG/ML) ONE (13:40)
[2018-03-19] MEDS ORDERED: PROPOFOL IV EMULSION 10 MG/ML 20 ML VIAL IV ONE (13:40)
--- NOTE | 2018-03-19 13:46 | Endo History and Physical ---
History & Physical Date of Service: Mar 19, 2018. Chief Complaint: anemia Referring Physician: Dr Raman History of Present Illness For EGD Past Surgical History Hx Cardiac Surgery: No Hx Abdominal Surgery: No Hx Post-Op Nausea and Vomiting: No Hx Cancer Surgery: No Hx Thoracic Surgery: No Hx Orthopedic: No Hx Urinary Tract Surgery: No Social History Smoking Status: Never Smoker Hx Substance Use: No Hx Alcohol Use: No Allergies Coded Allergies: No Known Allergies (Unverified , 03/18/18) Current Medications Reported Home Medications Medications Dose Route/Sig Max Daily Dose Days Date Category Imodium (Loperamide HCl) 2 Mg Cap 1 Dose PO UD 03/18/18 Reported Pepto-Bismol (Bismuth Subsalicylate) 262 Mg/15 Ml Elaine 1 Dose PO UD 03/18/18 Reported Excedrin Migraine (Znmohbg-Riwwzuwxqywkq-Zkfsfrms) 1 Tab Tab 1 Dose PO UD 03/18/18 Reported Vital Signs Weight (Kilograms): 55.400 Height (Feet): 5 Height (Inches): 4.00 Date Time Temp Pulse Resp B/P (MAP) Pulse Ox O2 Delivery O2 Flow Rate FiO2 03/19/18 13:23 36.7 60 16 97/61 100 03/19/18 13:05 36.7 57 17 99/62 100 03/19/18 12:05 Room Air 03/19/18 12:00 62 14 108/59 (75) 99 Room Air 03/19/18 11:35 36.8 66 17 109/61 100 03/19/18 11:09 36.8 65 18 101/60 99 03/19/18 10:50 36.8 71 18 102/59 100 03/19/18 10:36 36.6 63 16 99/56 100 03/19/18 09:01 66 13 87/51 (63) 99 Room Air 03/19/18 08:00 Room Air 03/19/18 08:00 36.8 68 14 105/54 (71) 99 Room Air 03/19/18 07:00 67 19 92/49 (63) 99 Room Air 03/19/18 06:01 71 14 107/60 (76) 100 Room Air 03/19/18 05:01 65 12 97/60 (72) 99 Room Air 03/19/18 04:01 36.9 73 14 103/65 (78) 100 Room Air 03/19/18 04:00 Room Air 03/19/18 03:01 77 17 107/61 (76) 100 Room Air 03/19/18 02:01 78 19 106/64 (78) 100 Room Air 03/19/18 02:00 76 18 100 03/19/18 01:30 37.1 78 16 108/62 100 03/19/18 00:30 36.8 75 20 112/67 100 03/19/18 00:01 Room Air 03/19/18 00:00 37.1 77 17 109/71 100 03/18/18 23:28 36.4 77 16 112/70 99 03/18/18 23:09 36.9 101 22 120/72 100 03/18/18 22:00 84 19 113/74 (87) 99 Room Air 03/18/18 20:15 93 18 99 03/18/18 20:00 Room Air 03/18/18 20:00 37.0 88 19 125/84 100 03/18/18 19:00 37.6 85 20 123/80 100 03/18/18 18:30 37.0 90 15 124/81 100 03/18/18 18:16 87 18 118/77 (91) 100 03/18/18 18:00 37.3 92 18 124/85 (98) 100 Room Air 03/18/18 17:31 90 19 128/95 (106) 100 03/18/18 17:01 37.4 89 18 123/81 (95) 100 Room Air 03/18/18 16:46 87 18 120/85 (97) 100 Room Air 03/18/18 16:31 37.5 88 18 122/83 (96) 100 Room Air 03/18/18 16:16 91 15 117/82 (94) 100 Room Air 03/18/18 16:01 36.9 90 18 118/80 (93) 100 Room Air 03/18/18 16:00 Room Air 03/18/18 15:46 100 13 116/75 (89) 100 03/18/18 15:31 36.9 96 16 115/84 (94) 100 03/18/18 15:16 93 18 114/84 (94) 100 03/18/18 15:01 95 18 113/78 (90) 100 03/18/18 14:31 107 19 105/64 (78) 100 4/1818 14:30 110 21 100 /1818 14:30 36.4 112 20 105/64 99 2.0 1818 14:17 36.6 116 22 112/38 99 Nasal Cannula 2.0 1818 14:16 103 20 102/67 (79) 100 18 14:15 104 20 100 18 14:01 112 24 138/51 (80) 100 18 14:00 110 24 100 18 13:57 36.4 116 20 112/38 97 2.0 18 13:56 36.4 115 4/18/18 13:50 114 26 112/38 (62) 92 1818 13:46 36.8 115 30 112/38 Physical Exam General Appearance: + thin Respiratory/Chest: Respiratory effort: no dyspnea Cardiovascular: Heart Auscultation: RRR Abdomen: Inspection & Palpation: soft Assessment and Plan Anemia for EGD
--- NOTE | 2018-03-19 14:22 | Discharge Instructions ---
Endoscopy Patient Instructions Date / Procedure(s) Performed Mar 19, 2018. EGD Allergy Information Coded Allergies: No Known Allergies (Unverified , 03/18/18) Discharge Date / Findings Mar 19, 2018. Duodenal ulcer Medication Instructions Restart Stopped Medication(s): resume meds Current Inpatient Medications Medications (Trade) Dose Ordered Sig/Bal Route Start Time Stop Time Status Last Admin Dose Admin Miscellaneous Information ([facility] Protocol For Hyperglycemia) 1 ea PRN PRN N/A 03/18/18 13:15 03/20/18 13:14 Sodium Chloride 1,000 ml @ 125 mls/hr Q8H IV 03/18/18 13:58 04/17/18 13:57 03/19/18 07:35 125 MLS/HR Pantoprazole Sodium 40 mg/ Dextrose 100 ml @ 20 mls/hr Q5H IV 03/18/18 18:00 04/17/18 17:59 03/19/18 09:41 20 MLS/HR Provider Instructions Activity Restrictions - No exercising or heavy lifting for 24 hours. - Do not drink alcohol the day of the procedure. - Do not drive a car or operate machinery until the day after the procedure. - Do not make any important decisions or sign important papers in 24 hours after the procedure. Following Day: - Return to full activity which may include returning to work/school. Diet Start your diet with liquids and light foods (jello, soup, juice, toast). Then eat your usual diet if not nauseated. Treatment For Common After Affects For mild abdominal pain, bloating, or excessive gas: - Rest - Eat lightly - Lie on right side Follow-Up Information Follow-up with as scheduled Anesthesia Information What You Should Know You have had a procedure that required some medicine to reduce anxiety and discomfort. This treatment is called moderate sedation. After receiving the treatment, you may be sleepy, but you will be able to breathe on your own. The effects of the treatment may last for several hours. Follow these instructions along with Activity/Diet recommendations noted above: * Do NOT do anything where dizziness or clumsiness would be dangerous. * Rest quietly at home today, then you can be up and about tomorrow. * Have a responsible person stay with you the rest of today. * You may have had an I.V. today. If so, you may take the dressing off later today. Recommendations Call your doctor if: * Trouble breathing * Continuous vomiting for more than 24 hours * Temperature above 101 degrees * Severe abdominal pain or bloating * Pain not relieved by pain medicine ordered * There is increased drainage or redness from any incision * A large amount of rectal bleeding greater than 2-3 tablespoons. (If you had a polyp/s removed or have hemorrhoids, a small amount of blood - from the rectum is to be expected.) * You have any unanswered questions or concerns. IN THE EVENT OF A SERIOUS EMERGENCY, GO TO THE NEAREST EMERGENCY ROOM Your discharge instructions were prepared by provider Frank Alston. Patient Instructions Signature Page Nadeen Posada Patient (or Guardian) Signature/Date: I have read and understand the instructions given to me by my caregivers. Caregiver/RN/Doctor Signature/Date: The above-named patient and/or guardian has received patient instructions on this date. + Original Patient Signature Page (only) stays with chart. Please make copy for patient.
--- NOTE | 2018-03-19 14:41 | Anesthesiology Progress Note ---
Anesthesia Post Op Note Date & Time Mar 19, 2018 at 14:40 Vital Signs Pain Intensity: 0 Vital Signs Past 12 Hours Date Time Temp Pulse Resp B/P (MAP) Pulse Ox O2 Delivery O2 Flow Rate FiO2 03/19/18 14:30 64 20 130/66 (87) 100 Room Air 03/19/18 14:25 75 20 136/86 (103) 98 Room Air 03/19/18 14:19 66 20 119/81 (94) 100 Room Air 03/19/18 13:58 36.9 67 20 100/60 100 4.0 03/19/18 13:41 36.7 62 20 109/60 (76) 100 Room Air 03/19/18 13:23 36.7 60 16 97/61 100 03/19/18 13:05 36.7 57 17 99/62 100 03/19/18 12:05 Room Air 03/19/18 12:00 62 14 108/59 (75) 99 Room Air 03/19/18 11:35 36.8 66 17 109/61 100 03/19/18 11:09 36.8 65 18 101/60 99 03/19/18 10:50 36.8 71 18 102/59 100 03/19/18 10:36 36.6 63 16 99/56 100 03/19/18 09:01 66 13 87/51 (63) 99 Room Air 03/19/18 08:00 Room Air 03/19/18 08:00 36.8 68 14 105/54 (71) 99 Room Air 03/19/18 07:00 67 19 92/49 (63) 99 Room Air 03/19/18 06:01 71 14 107/60 (76) 100 Room Air 03/19/18 05:01 65 12 97/60 (72) 99 Room Air 03/19/18 04:01 36.9 73 14 103/65 (78) 100 Room Air 03/19/18 04:00 Room Air 03/19/18 03:01 77 17 107/61 (76) 100 Room Air Notes Mental Status: alert / awake / arousable, participated in evaluation Pt Amnestic to Procedure: Yes Nausea / Vomiting: adequately controlled Pain: adequately controlled Airway Patency, RR, SpO2: stable & adequate BP & HR: stable & adequate Hydration State: stable & adequate Anesthetic Complications: no major complications apparent
--- NOTE | 2018-03-19 14:41 | PROGRESS NOTE ---
DATE: 03/19/2018 The patient underwent an upper endoscopy today after receiving 5 units of blood. Her hemoglobin went from 2.6 to 7.5. On endoscopy, she was found to have a large deep cratered ulcer in the apex of the duodenal bulb. There was no stigmata of bleeding at this time, but the base was injected with 1.5 mL of epinephrine at a dilution of 1:10,000. The patient tolerated the procedure well. IMPRESSION: The patient has a large deep duodenal ulcer. Plan on checking a stool for H. pylori and we will advance her diet to a bland full-liquid diet today and continue her on Protonix.
[2018-03-19 16:31] LABS: HEMATOCRIT 33.7 % (37-47); HEMOGLOBIN 11.2 g/dL (12.0-16.0)
--- NOTE | 2018-03-19 16:52 | GI REPORT ---
Procedure Date: 03/19/2018 1:47 PM Procedure: Upper GI endoscopy Indications: Iron deficiency anemia, Coffee-ground emesis, Heme positive stool Medicines: Propofol total dose 250 mg IV, Lidocaine 40 mg IV Complications: No immediate complications. Estimated Blood Loss: Estimated blood loss: none. Procedure: Pre-Anesthesia Assessment: - Prior to the procedure, a History and Physical was performed, and patient medications, allergies and sensitivities were reviewed. The patient's tolerance of previous anesthesia was reviewed. - The risks and benefits of the procedure and the sedation options and risks were discussed with the patient. All questions were answered and informed consent was obtained. After obtaining informed consent, the endoscope was passed under direct vision. Throughout the procedure, the patient's blood pressure, pulse, and oxygen saturations were monitored continuously. The scope was introduced through the mouth, and advanced to the second part of duodenum. The upper GI endoscopy was accomplished without difficulty. The patient tolerated the procedure well. Findings: The Z-line was regular and was found 37 cm from the incisors. The entire examined stomach was normal. One non-bleeding cratered duodenal ulcer with no stigmata of bleeding was found in the duodenal bulb. The lesion was 15 mm in largest dimension. Area was successfully injected with 2 mL of a 1:10,000 solution of epinephrine for drug delivery. Estimated blood loss: none. Impression: - Z-line regular, 37 cm from the incisors. - Normal stomach. - One non-bleeding duodenal ulcer with no stigmata of bleeding. Injected. - No specimens collected. Recommendation: - Return patient to [facility] for ongoing care. Frank Alston M.D. Frank Alston MD 03/19/2018 2:25:27 PM Note Initiated On: 03/19/2018 1:47 PM I attest to the content of the Intraoperative Record and orders documented therein, exceptions below
--- NOTE | 2018-03-19 19:54 | Critical Care Progress Note ---
Critical Care Progress Note Date of Service Mar 19, 2018. Attending Dr. Mcelroy Subjective The patient is feeling better, her vital signs remained stable, no vomiting of coffee-ground, she continued to have melanotic stool. The patient underwent EGD today which showed duodenal ulcer injected with epinephrine. And sustained hemostasis. Objective Her physical exam revealed stable vital signs, Case pale as she did yesterday, S1-S2 regular rate and rhythm, lungs are clear, abdomen is benign, no edema. EGD report was noted. Her most recent hematocrit was 33. Assessment & Plan 1. Upper GI bleeding. 2. Blood loss secondary to #1. 3. Peptic ulcer disease with duodenal ulcers, nonbleeding, injected with 1.5 mL of epinephrine, hemostasis being achieved. 4. History of headache has been treated with Excedrin, currently contraindicated in her case. Plan: 1. I will continue to check her hematocrit was overnight and in the morning. 2. Decrease IV fluid to avoid dilutional effect on the hematocrit. 3. Continue with oral intake as recommended by GI. 4. Appreciate Dr. Alston input from GI, results of the EGD were noted. 5. Continue with Protonix drip IV. 6. Stool for H. pylori. 7. Venodyne boots. 8. Discussed with the father at the bedside in details. All their questions been answered. 9. Patient will be monitored in the ICU overnight and can be transferred to regular floor in the morning. 10. Case discussed with the staff on rounds and details. Appreciate all notes, critical care time spent with the patient was 45 minutes. Data Medications: Current Inpatient Medications Medications (Trade) Dose Ordered Sig/Bal Route Start Time Stop Time Status Last Admin Dose Admin Miscellaneous Information (Icu Protocol For Hyperglycemia) 1 ea PRN PRN N/A 03/18/18 13:15 03/20/18 13:14 Sodium Chloride 1,000 ml @ 75 mls/hr [id number] IV 03/18/18 13:58 04/17/18 13:57 03/19/18 17:18 75 MLS/HR Pantoprazole Sodium 40 mg/ Dextrose 100 ml @ 20 mls/hr Q5H IV 03/18/18 18:00 04/17/18 17:59 03/19/18 17:18 20 MLS/HR I & O: 24-Hour Column 03/20/18 08:00 Intake Total 1406 ml Output Total 900 ml Balance 506 ml Vital Signs: Date Time Temp Pulse Resp B/P (MAP) Pulse Ox O2 Delivery O2 Flow Rate FiO2 03/19/18 18:00 65 18 107/68 (81) 100 Room Air 03/19/18 16:01 Room Air 03/19/18 16:00 36.8 66 20 83/74 (77) 100 Room Air 03/19/18 15:37 36.8 71 20 83/74 100 03/19/18 14:40 58 20 125/87 (100) 100 Room Air 03/19/18 14:30 64 20 130/66 (87) 100 Room Air 03/19/18 14:25 75 20 136/86 (103) 98 Room Air 03/19/18 14:19 66 20 119/81 (94) 100 Room Air 03/19/18 13:58 36.9 67 20 100/60 100 4.0 03/19/18 13:41 36.7 62 20 109/60 (76) 100 Room Air 03/19/18 13:23 36.7 60 16 97/61 100 03/19/18 13:05 36.7 57 17 99/62 100 03/19/18 12:05 Room Air 03/19/18 12:00 62 14 108/59 (75) 99 Room Air 03/19/18 11:35 36.8 66 17 109/61 100 03/19/18 11:09 36.8 65 18 101/60 99 03/19/18 10:50 36.8 71 18 102/59 100 03/19/18 10:36 36.6 63 16 99/56 100 03/19/18 09:01 66 13 87/51 (63) 99 Room Air 03/19/18 08:00 Room Air 03/19/18 08:00 36.8 68 14 105/54 (71) 99 Room Air 03/19/18 07:00 67 19 92/49 (63) 99 Room Air 03/19/18 06:01 71 14 107/60 (76) 100 Room Air 03/19/18 05:01 65 12 97/60 (72) 99 Room Air 03/19/18 04:01 36.9 73 14 103/65 (78) 100 Room Air 03/19/18 04:00 Room Air 03/19/18 03:01 77 17 107/61 (76) 100 Room Air 03/19/18 02:01 78 19 106/64 (78) 100 Room Air 03/19/18 02:00 76 18 100 03/19/18 01:30 37.1 78 16 108/62 100 03/19/18 00:30 36.8 75 20 112/67 100 03/19/18 00:01 Room Air 03/19/18 00:00 37.1 77 17 109/71 100 03/18/18 23:28 36.4 77 16 112/70 99 03/18/18 23:09 36.9 101 22 120/72 100 03/18/18 22:00 84 19 113/74 (87) 99 Room Air 03/18/18 20:15 93 18 99 03/18/18 20:00 Room Air 03/18/18 20:00 37.0 88 19 125/84 100 Laboratory Results: Last 24 Hours Test 03/18/18 21:11 03/18/18 21:15 03/19/18 00:07 03/19/18 01:58 Hemoglobin 7.2 g/dL 8.2 g/dL Hematocrit 22.1 % 25.0 % Bedside Glucose 106 mg/dl 102 mg/dl Test 03/19/18 04:44 03/19/18 04:57 03/19/18 15:58 03/19/18 16:04 Creatine Kinase MB Ratio 2.2 White Blood Count 11.69 K/uL Red Blood Count 2.86 M/uL Hemoglobin 7.5 g/dL 11.2 g/dL Hematocrit 22.6 % 33.7 % Mean Corpuscular Volume 79.0 fL Mean Corpuscular Hemoglobin 26.2 pg Mean Corpuscular Hemoglobin Concent 33.2 g/dl RDW Standard Deviation 63.0 fL RDW Coefficient of Variation 21.9 % Platelet Count 229 K/uL Mean Platelet Volume 9.1 fL Platelet Estimate NORMAL Prothrombin Time 12.2 SECONDS Prothromb Time International Ratio 1.2 Sodium Level 139 mmol/L Potassium Level 4.0 mmol/L Chloride Level 113 mmol/L Carbon Dioxide Level 22 mmol/L Anion Gap 4.0 mmol/L Blood Urea Nitrogen 40 mg/dl Creatinine 0.77 mg/dl Est Creatinine Clear Calc Drug Dose 84.1 ml/min Estimated GFR () 113.5 Estimated GFR (Non- 97.9 BUN/Creatinine Ratio 52.7 Random Glucose 95 mg/dl Calcium Level 7.3 mg/dl Phosphorus Level 3.2 mg/dl Magnesium Level 2.0 mg/dl Total Creatine Kinase 102 U/L Creatine Kinase MB 2.2 ng/ml Troponin I 0.439 ng/ml Bedside Glucose 84 mg/dl Test 03/19/18 19:38
[2018-03-19 22:38] LABS: HEMATOCRIT 28.1 % (37-47); HEMOGLOBIN 9.6 g/dL (12.0-16.0)
[2018-03-20] VITALS (12 sets, daily range): BP systolic 90–104; BP diastolic 47–62; PULSE 52–63; TEMP 36.5–36.8; O2SAT 99–100
[2018-03-20] MEDS: SODIUM CHLORIDE 0.9% 1000ML 1,000 ML IV SCH ×2 (01:08→05:50)
[2018-03-20] MEDS: PANTOprazole INJ 40 MG in DEXTROSE 5% 100ML IV SCH ×6 (03:13→21:04)
[2018-03-20 05:23] LABS: HEMATOCRIT 26.9 % (37-47); MEAN CELL VOLUME 81.5 fL (80-100); MEAN CORPUSCULAR HEMOGLOBIN 27.3 pg (25-34); MEAN CORPUSCULAR HGB CONC 33.5 g/dl (32-36); MEAN PLATELET VOLUME 9.7 fL (7.4-10.4); PLATELET COUNT 141 K/uL (130-400); RED CELL DISTRIBUTION WIDTH CV 19.1 % (11.5-14.5); RED CELL DISTRIBUTION WIDTH SD 57.1 fL (36.4-46.3); WHITE BLOOD COUNT 9.35 K/uL (4.8-10.8)
[2018-03-20 06:17] LABS: CALCIUM 7.3 mg/dl (8.5-10.1); CREATININE 0.52 mg/dl (0.60-1.20); PHOSPHORUS 1.7 mg/dl (2.5-4.9); POTASSIUM 3.8 mmol/L (3.5-5.1)
--- NOTE | 2018-03-20 10:54 | Progress Note ---
Internal Med Progress Note Date of Service: Mar 20, 2018. Provider Documentation: SUBJECTIVE: The patient was seen and examined in ICU Complains of tiredness and fatigue Denies any chest pain palpitation, any abdominal pain nausea and/or vomiting Used Excedrin and Pepto-Bismol for symptomatic relief 03/20 Much better this Am Except tiredness OBJECTIVE: Vital Signs-as noted below Exam: General-No apparent distress Eyes-normal ENT-normal Neck-supple Lungs-clear to auscultate bilaterally Heart-S1-S2 regular, no murmur appreciated Abdomen-benign, mildly tender in epigastrium, bowel sounds present Extremities-no edema Neuro-AAA 3 Generally weak but no focal neuro deficit Lab data as noted below. ASSESSMENT & PLAN: NONBLEEDING DUODENA ULCER PROFOUND ANEMIA UPPER GI BLEED-NSAID induced -Patient presenting with altered mental status, vomiting, diarrhea; in the ED found to have a hemoglobin of 2.6 -Per father's report, patient has been taking several doses of Excedrin Migraine for headaches; suspect NSAID induced gastritis -Protonix drip -Received 6 units of PRBC -Appreciate GI evaluation -Endoscopy on 03/19-Nonbleeding Duodenal ulcer -injected with epinephrine -Hb remains stable -transfer to [place] -PT/OT evaluation -likely discharge tomorrow ELEVATED TROPONIN -Mildly elevated at 0.077 -Likely demand ischemia from profound anemia -Will continue to cycle cardiac enzymes-minimally high -EKG shows early repolarization changes, again likely due to profound anemia -Doubt any ACS ABNORMAL TSH -Noted normal free T4 -Recommend rechecking once acute illness has resolved DVT PROPHYLAXIS -SCDs due to profound anemia DISPOSITION Transfer to [facility] Likely discharge tomorrow Family updated Vital Signs: Date Time Temp Pulse Resp B/P (MAP) Pulse Ox O2 Delivery O2 Flow Rate FiO2 03/20/18 10:00 63 14 96/62 (73) 100 Room Air 03/20/18 08:03 Room Air 03/20/18 08:00 36.8 59 15 98/51 (67) 99 Room Air 03/20/18 07:00 58 12 90/47 (61) 100 Room Air 03/20/18 06:01 60 14 104/57 (73) 99 Room Air 03/20/18 05:01 58 14 92/55 (67) 99 Room Air 03/20/18 04:31 57 15 95/54 (68) 99 Room Air 03/20/18 04:00 Room Air 03/20/18 02:01 58 15 92/60 (71) 99 Room Air 03/20/18 00:01 Room Air 03/20/18 00:01 36.7 59 18 96/61 (73) 100 Room Air 03/19/18 22:00 67 18 88/55 (66) 100 Room Air 03/19/18 20:00 Room Air 03/19/18 20:00 36.8 65 16 98/60 (73) 100 Room Air 03/19/18 18:00 65 18 107/68 (81) 100 Room Air 03/19/18 16:01 Room Air 03/19/18 16:00 36.8 66 20 83/74 (77) 100 Room Air 03/19/18 15:37 36.8 71 20 83/74 100 03/19/18 14:40 58 20 125/87 (100) 100 Room Air 03/19/18 14:30 64 20 130/66 (87) 100 Room Air 03/19/18 14:25 75 20 136/86 (103) 98 Room Air 03/19/18 14:19 66 20 119/81 (94) 100 Room Air 03/19/18 13:58 36.9 67 20 100/60 100 4.0 03/19/18 13:41 36.7 62 20 109/60 (76) 100 Room Air 03/19/18 13:23 36.7 60 16 97/61 100 03/19/18 13:05 36.7 57 17 99/62 100 03/19/18 12:05 Room Air 03/19/18 12:00 62 14 108/59 (75) 99 Room Air 03/19/18 11:35 36.8 66 17 109/61 100 03/19/18 11:09 36.8 65 18 101/60 99 03/19/18 10:50 36.8 71 18 102/59 100 Lab Results: Results Past 24 Hours Test 03/19/18 15:58 03/19/18 16:04 03/19/18 20:55 03/19/18 22:16 Range/Units Bedside Glucose 84 98 70-90 mg/dl Hemoglobin 11.2 9.6 12.0-16.0 g/dL Hematocrit 33.7 28.1 37-47 % Test 03/20/18 04:57 Range/Units White Blood Count 9.35 4.8-10.8 K/uL Red Blood Count 3.30 4.2-5.4 M/uL Hemoglobin 9.0 12.0-16.0 g/dL Hematocrit 26.9 37-47 % Mean Corpuscular Volume 81.5 80-100 fL Mean Corpuscular Hemoglobin 27.3 25-34 pg Mean Corpuscular Hemoglobin Concent 33.5 32-36 g/dl RDW Standard Deviation 57.1 36.4-46.3 fL RDW Coefficient of Variation 19.1 11.5-14.5 % Platelet Count 141 130-400 K/uL Mean Platelet Volume 9.7 7.4-10.4 fL Sodium Level 140 136-145 mmol/L Potassium Level 3.8 3.5-5.1 mmol/L Chloride Level 114 98-107 mmol/L Carbon Dioxide Level 24 21-32 mmol/L Anion Gap 2.0 3-11 mmol/L Blood Urea Nitrogen 14 7-18 mg/dl Creatinine 0.52 0.60-1.20 mg/dl Est Creatinine Clear Calc Drug Dose 126.7 ml/min Estimated GFR () 140.5 Estimated GFR (Non- 121.2 BUN/Creatinine Ratio 27.8 10-20 Random Glucose 90 70-99 mg/dl Calcium Level 7.3 8.5-10.1 mg/dl Phosphorus Level 1.7 2.5-4.9 mg/dl Magnesium Level 2.0 1.8-2.4 mg/dl Troponin I 0.109 0-0.045 ng/ml
[2018-03-20 14:40] LABS: HEMATOCRIT 30.4 % (37-47); HEMOGLOBIN 9.9 g/dL (12.0-16.0)
[2018-03-20] MEDS ORDERED: OPTIRAY 320 IV PRN (17:45)
--- NOTE | 2018-03-20 18:42 | Critical Care Progress Note ---
Critical Care Progress Note Date of Service Mar 20, 2018. Attending Dr. Nvai Tate The patient remained stable overnight, no active issues, no ongoing GI bleeding , hematocrit remains stable and she remains asymptomatic. Objective Her physical exam revealed stable vital signs, Case pale as she did yesterday, S1-S2 regular rate and rhythm, lungs are clear, abdomen is benign, no edema. EGD report was noted. Her most recent hematocrit was 33. Physical exam on 03/20/2018 showed stable vital signs, S1-S2 regular rate and rhythm, heart examination and lung examination did not reveal any abnormality, abdomen is benign without tenderness, no edema in the periphery. Hematocrit has been stable. Assessment & Plan 1. Upper GI bleeding. 2. Blood loss secondary to #1. 3. Peptic ulcer disease with duodenal ulcers, nonbleeding, 4. NSAID induced peptic ulcer disease. Plan: 1. Morning labs. 2. Discontinue IV fluid. 3. Advance oral intake per GI. 4. Appreciate Dr. Alston input from GI, results of the EGD were noted. 5. Change Protonix to p.o. twice daily. 6. Follow stool for H. pylori. 7. Venodyne boots. 8. Discussed with the father at the bedside in details. All their questions been answered. 9. Transfer the patient to regular floor, appreciate Dr. Virk acceptance of this case. 10. Case discussed with the staff on rounds and details. Appreciate all notes, critical care time spent with the patient was 35 minutes. Data Medications: Current Inpatient Medications Medications (Trade) Dose Ordered Sig/Bal Route Start Time Stop Time Status Last Admin Dose Admin Pantoprazole Sodium 40 mg/ Dextrose 100 ml @ 20 mls/hr Q5H IV 03/18/18 18:00 04/17/18 17:59 03/20/18 15:46 20 MLS/HR Ioversol (Optiray 320) 100 ml UD PRN IV 03/20/18 17:45 03/24/18 17:44 I & O: 24-Hour Column 03/21/18 08:00 Intake Total 1037 ml Output Total 1800 ml Balance -763 ml Vital Signs: Date Time Temp Pulse Resp B/P (MAP) Pulse Ox O2 Delivery O2 Flow Rate FiO2 03/20/18 16:00 Room Air 03/20/18 15:47 36.5 52 20 97/60 (72) 100 Room Air 03/20/18 14:00 36.7 60 20 101/60 (74) 99 Room Air 03/20/18 12:36 36.8 57 15 100 4.0 03/20/18 12:17 Room Air 03/20/18 12:00 57 15 101/58 (72) 100 Room Air 03/20/18 10:00 63 14 96/62 (73) 100 Room Air 03/20/18 08:03 Room Air 03/20/18 08:00 36.8 59 15 98/51 (67) 99 Room Air 03/20/18 07:00 58 12 90/47 (61) 100 Room Air 03/20/18 06:01 60 14 104/57 (73) 99 Room Air 03/20/18 05:01 58 14 92/55 (67) 99 Room Air 03/20/18 04:31 57 15 95/54 (68) 99 Room Air 03/20/18 04:00 Room Air 03/20/18 02:01 58 15 92/60 (71) 99 Room Air 03/20/18 00:01 Room Air 03/20/18 00:01 36.7 59 18 96/61 (73) 100 Room Air 03/19/18 22:00 67 18 88/55 (66) 100 Room Air 03/19/18 20:00 Room Air 03/19/18 20:00 36.8 65 16 98/60 (73) 100 Room Air Laboratory Results: Last 24 Hours Test 03/19/18 20:55 03/19/18 22:16 03/20/18 04:57 03/20/18 14:31 Bedside Glucose 98 mg/dl Hemoglobin 9.6 g/dL 9.0 g/dL 9.9 g/dL Hematocrit 28.1 % 26.9 % 30.4 % White Blood Count 9.35 K/uL Red Blood Count 3.30 M/uL Mean Corpuscular Volume 81.5 fL Mean Corpuscular Hemoglobin 27.3 pg Mean Corpuscular Hemoglobin Concent 33.5 g/dl RDW Standard Deviation 57.1 fL RDW Coefficient of Variation 19.1 % Platelet Count 141 K/uL Mean Platelet Volume 9.7 fL Sodium Level 140 mmol/L Potassium Level 3.8 mmol/L Chloride Level 114 mmol/L Carbon Dioxide Level 24 mmol/L Anion Gap 2.0 mmol/L Blood Urea Nitrogen 14 mg/dl Creatinine 0.52 mg/dl Est Creatinine Clear Calc Drug Dose 126.7 ml/min Estimated GFR () 140.5 Estimated GFR (Non- 121.2 BUN/Creatinine Ratio 27.8 Random Glucose 90 mg/dl Calcium Level 7.3 mg/dl Phosphorus Level 1.7 mg/dl Magnesium Level 2.0 mg/dl Troponin I 0.109 ng/ml Test 03/20/18 17:10 Bedside Glucose 100 mg/dl
--- NOTE | 2018-03-20 19:29 | GASTROENTEROLOGY PROGRESS NOTE ---
DATE: 03/20/2018 SUBJECTIVE: Chart reviewed, patient examined. The patient has profound microcytic anemia. The patient was also found to have a sizable duodenal bulb ulcer that underwent epinephrine injection. No samples taken. The patient is feeling better. She denies any hematemesis, coffee-ground emesis, melena, or bright red blood per rectum currently. She has received a total of 6 units of packed red blood cells, the last being yesterday morning at 10:30. She is currently on pantoprazole 40 mg drip. Historically, the patient has chronic headaches and does use Excedrin for these; however, when further questioned, she describes a pattern that she generally only uses a couple of tablets a week or no more than a couple of times weekly. It is unclear if the patient has had any meaningful weight loss although there may have been some according to the patient and family members. There was also a pattern of diarrhea, darker appearing stools during the last several weeks along with a vomitus that was darker in appearance according to the patient's father. There is no prior history of peptic ulcer disease. REVIEW OF SYSTEMS: Otherwise noncontributory based on 13-point exam except for mentioned above. PHYSICAL EXAMINATION: VITAL SIGNS: Currently, blood pressure is 97/60, respirations 20, heart rate 52, 36.5 temperature, pulse oximetry 100% on room air. GENERAL: The patient is awake, alert, and oriented x3. HEENT: Sclerae anicteric. Conjunctivae moist. HEART: Normal S1 and S2. LUNGS: Clear to auscultation. ABDOMEN: Soft, flat, nontender, without rebound or guarding. EXTREMITIES: Without edema. RECTAL: Deferred. LABORATORY STUDIES: Hemoglobin this afternoon is 9.9, white count this morning is 9.3. Serum chemistry on admission showed a BUN and creatinine of 34 and 1.52 although with hydration and transfusion her BUN and creatinine are 14 and 0.5 today. Magnesium is low at 1.7. There are mild troponin elevations. LFTs were all normal on admission. TSH, however, is markedly low at 0.008 although free T4 is normal at 1.5. HCG was negative. ASSESSMENT AND PLAN: The patient with a sizable duodenal ulcer presumably leading to profound microcytic anemia that led to increasingly progressive and significant fatigue over the past several weeks. There was also diarrhea associated with this. Although the patient was using an Excedrin (aspirin) for her migraines, these did not seem to be at a rate of use that would have created this process at least based on the patient and family history. The TSH is extremely low although free T4 was in the normal range. I am not sure if this is reflecting the patient's chronic medical status, and this may need to be rechecked at some point to ensure its accuracy and whether treatment may be warranted. It would appear that the patient would be hyperthyroid if this TSH is valid. I will order a stool for H. pylori antigen to exclude this as a cause, and if the patient is to be discharged within the next 1-2 days, please make sure that the patient has had the stool study collected as well as goes home on b.i.d. PPI dosing and strict avoidance of any aspirin or NSAIDs. She may need neurology evaluation for control of headaches. Lastly, because of the patient's profound anemia with relative lack of symptoms by way of abdominal pain, it may be reasonable to investigate the abdomen and pelvis, and I will order a CT of the abdomen and pelvis this evening. Lastly, replacing iron may be a challenge by oral methods, and parenteral dosing of iron may be worthwhile for several doses. Perhaps a dose can be administered during her hospitalization and subsequent doses per protocol as an outpatient until her iron stores are replenished. The patient should have a followup EGD, and given her diarrhea and profound anemia, it is not unreasonable to consider colonoscopy, and this could be planned in 6 to 8 weeks at the same time. All questions answered for the patient and her family. Dr. Ferrari will be covering this weekend.
[2018-03-20 22:13] LABS: HEMATOCRIT 32.1 % (37-47); HEMOGLOBIN 10.7 g/dL (12.0-16.0)
--- NOTE | 2018-03-20 22:45 | DIAGNOSTIC IMAGING REPORT ---
ABD/PELVIS IV AND ORAL CONT CT DOSE: 327.68 mGy.cm HISTORY: Weight loss DU , weight loss, diarrhea- r/o mass/lymphadenopathy/colitis TECHNIQUE: Multiaxial CT images of the abdomen and pelvis were performed following the use of intravenous and oral contrast. A dose lowering technique was utilized adhering to the principles of ALARA. COMPARISON STUDY: None. FINDINGS: Minimal dependent basilar atelectasis. Liver spleen and pancreas are uniform. Kidneys enhance appropriately. No evidence for hydronephrosis. The bowel pattern is nonobstructive. Bladder is midline. Uterus is anteflexed. There is no significant adenopathy within the abdomen or pelvic region. Appendix is unremarkable. The abdominal aorta is normal in course and caliber. There is no acute abnormality of the osseous structures throughout. IMPRESSION: No significant abnormality identified within the abdomen or pelvis. The above report was generated using voice recognition software. It may contain grammatical, syntax or spelling errors. Electronically signed by: Jarrod Dean M.D. 03/20/2018 10:44 PM Dictated Date/Time: 03/20/2018 10:41 PM
[2018-03-21 00:32] VITALS: BP 108/69; PULSE 57; TEMP 36.5; O2SAT 100
[2018-03-21] MEDS: PANTOprazole INJ 40 MG in DEXTROSE 5% 100ML IV SCH ×5 (03:24→23:28)
[2018-03-21 06:21] LABS: HEMATOCRIT 26.8 % (37-47); HEMOGLOBIN 8.7 g/dL (12.0-16.0); MEAN CORPUSCULAR HEMOGLOBIN 26.9 pg (25-34); MEAN CORPUSCULAR HGB CONC 32.5 g/dl (32-36); MEAN PLATELET VOLUME 10.2 fL (7.4-10.4); PLATELET COUNT 198 K/uL (130-400); RED CELL DISTRIBUTION WIDTH CV 19.6 % (11.5-14.5); RED CELL DISTRIBUTION WIDTH SD 59.5 fL (36.4-46.3); WHITE BLOOD COUNT 10.23 K/uL (4.8-10.8)
[2018-03-21 06:55] LABS: CREATININE 0.52 mg/dl (0.60-1.20); POTASSIUM 3.7 mmol/L (3.5-5.1)
[2018-03-21 07:34] VITALS: BP 92/52; PULSE 60; TEMP 36.9; O2SAT 99
[2018-03-21 08:00] VITALS: O2SAT 91
[2018-03-21] MEDS ORDERED: POTASSIUM PHOS 3 MMOL/1 ML INFUSION IV STA (14:26)
--- NOTE | 2018-03-21 14:34 | Progress Note ---
Internal Med Progress Note Date of Service: Mar 21, 2018. Provider Documentation: SUBJECTIVE: The patient was seen and examined in ICU Complains of tiredness and fatigue Denies any chest pain palpitation, any abdominal pain nausea and/or vomiting Used Excedrin and Pepto-Bismol for symptomatic relief 03/20- Much better this Am Except tiredness Denies any complaints Hb was noted to be low this AM No more abdominal pain OBJECTIVE: Vital Signs-as noted below Exam: General-No apparent distress Eyes-normal ENT-normal Neck-supple Lungs-clear to auscultate bilaterally Heart-S1-S2 regular, no murmur appreciated Abdomen-benign, mildly tender in epigastrium, bowel sounds present Extremities-no edema Neuro-AAA 3 Generally weak but no focal neuro deficit Lab data as noted below. ASSESSMENT & PLAN: NONBLEEDING DUODENA ULCER PROFOUND ANEMIA UPPER GI BLEED-NSAID induced -Patient presenting with altered mental status, vomiting, diarrhea; in the ED found to have a hemoglobin of 2.6 -Per father's report, patient has been taking several doses of Excedrin Migraine for headaches; suspect NSAID induced gastritis -Protonix drip -Received 6 units of PRBC -Appreciate GI evaluation -Endoscopy on 03/19-Nonbleeding Duodenal ulcer -injected with epinephrine -transfer to [place] -Clinically better but Hb dropped to 8.7 -no Hematemesis but melena(expected) -stool for HP sent -recheck Hb at 4 PM and Tomorrow Iron Deficiency Anemia Received 6 units of PRBC Will start Oral iron May need parenteral Iron ELEVATED TROPONIN -Mildly elevated at 0.077 -Likely demand ischemia from profound anemia -Will continue to cycle cardiac enzymes-minimally high -EKG shows early repolarization changes, again likely due to profound anemia -Doubt any ACS ABNORMAL TSH -Noted normal free T4 -Recommend rechecking once acute illness has resolved DVT PROPHYLAXIS -SCDs due to profound anemia DISPOSITION Transfer to [facility] Likely discharge tomorrow Family updated Vital Signs: Date Time Temp Pulse Resp B/P (MAP) Pulse Ox O2 Delivery O2 Flow Rate FiO2 03/21/18 08:00 91 Room Air 03/21/18 07:34 36.9 60 16 92/52 (65) 99 Room Air 03/21/18 00:32 36.5 57 18 108/69 (82) 100 Room Air 03/21/18 00:00 Room Air 03/20/18 16:00 Room Air 03/20/18 15:47 36.5 52 20 97/60 (72) 100 Room Air Lab Results: Results Past 24 Hours Test 03/20/18 14:31 03/20/18 17:10 03/20/18 20:43 03/20/18 22:02 Range/Units Hemoglobin 9.9 10.7 12.0-16.0 g/dL Hematocrit 30.4 32.1 37-47 % Bedside Glucose 100 85 70-90 mg/dl Test 03/21/18 00:58 03/21/18 05:19 Range/Units White Blood Count 10.23 4.8-10.8 K/uL Red Blood Count 3.23 4.2-5.4 M/uL Hemoglobin 8.7 12.0-16.0 g/dL Hematocrit 26.8 37-47 % Mean Corpuscular Volume 83.0 80-100 fL Mean Corpuscular Hemoglobin 26.9 25-34 pg Mean Corpuscular Hemoglobin Concent 32.5 32-36 g/dl RDW Standard Deviation 59.5 36.4-46.3 fL RDW Coefficient of Variation 19.6 11.5-14.5 % Platelet Count 198 130-400 K/uL Mean Platelet Volume 10.2 7.4-10.4 fL Sodium Level 139 136-145 mmol/L Potassium Level 3.7 3.5-5.1 mmol/L Chloride Level 108 98-107 mmol/L Carbon Dioxide Level 26 21-32 mmol/L Anion Gap 5.0 3-11 mmol/L Blood Urea Nitrogen 5 7-18 mg/dl Creatinine 0.52 0.60-1.20 mg/dl Est Creatinine Clear Calc Drug Dose 126.7 ml/min Estimated GFR () 140.5 Estimated GFR (Non- 121.2 BUN/Creatinine Ratio 10.5 10-20 Random Glucose 91 70-99 mg/dl Calcium Level 8.0 8.5-10.1 mg/dl Magnesium Level 1.9 1.8-2.4 mg/dl
[2018-03-21] MEDS ORDERED: POTASSIUM PHOSPHATE INJ 30 MMOL in SODIUM CHLORIDE 0.9% 500ML 500 ML IV ONE (15:00)
--- NOTE | 2018-03-21 15:26 | Gastroenterology Progress Note ---
Progress Note Date of Service: Mar 21, 2018 Subjective Pt evaluation today including: conversation w/ patient, conversation w/ family (father and brother), physical exam, chart review, lab review, review of inpatient medication list CC f/u GI bleeding. HPI Black stool overnight and drop in Hgb noted to 8/7. No abd pain. Review of Systems Respiratory: No shortness of breath Cardiac: No chest pain Medications Current Inpatient Medications Medications (Trade) Dose Ordered Sig/Bal Route Start Time Stop Time Status Last Admin Dose Admin Pantoprazole Sodium 40 mg/ Dextrose 100 ml @ 20 mls/hr Q5H IV 03/18/18 18:00 04/17/18 17:59 03/21/18 13:35 20 MLS/HR Ioversol (Optiray 320) 100 ml UD PRN IV 03/20/18 17:45 03/24/18 17:44 Ferrous Sulfate (Feosol Tab) 325 mg TIDM PO 03/21/18 17:00 04/20/18 16:59 Potassium Phosphate 30 mmol/ Sodium Chloride 510 ml @ 102 mls/hr TODAY@1500 ONCE IV 03/21/18 15:00 03/21/18 19:59 Objective Vital Signs Date Time Temp Pulse Resp B/P (MAP) Pulse Ox O2 Delivery O2 Flow Rate FiO2 03/21/18 08:00 91 Room Air 03/21/18 07:34 36.9 60 16 92/52 (65) 99 Room Air 03/21/18 00:32 36.5 57 18 108/69 (82) 100 Room Air 03/21/18 00:00 Room Air 03/20/18 16:00 Room Air 03/20/18 15:47 36.5 52 20 97/60 (72) 100 Room Air Physical Exam General Appearance: WD/WN, no apparent distress Respiratory/Chest: lungs clear, no respiratory distress Cardiovascular: regular rate, rhythm, no edema Abdomen: normal bowel sounds, non tender, soft, no organomegaly Neurologic/Psych: mingle operator II-XII nml as tested Laboratory Results Last 24 Hours Test 03/20/18 17:10 03/20/18 20:43 03/20/18 22:02 03/21/18 00:58 Bedside Glucose 100 mg/dl 85 mg/dl Hemoglobin 10.7 g/dL Hematocrit 32.1 % Test 03/21/18 05:19 White Blood Count 10.23 K/uL Red Blood Count 3.23 M/uL Hemoglobin 8.7 g/dL Hematocrit 26.8 % Mean Corpuscular Volume 83.0 fL Mean Corpuscular Hemoglobin 26.9 pg Mean Corpuscular Hemoglobin Concent 32.5 g/dl RDW Standard Deviation 59.5 fL RDW Coefficient of Variation 19.6 % Platelet Count 198 K/uL Mean Platelet Volume 10.2 fL Sodium Level 139 mmol/L Potassium Level 3.7 mmol/L Chloride Level 108 mmol/L Carbon Dioxide Level 26 mmol/L Anion Gap 5.0 mmol/L Blood Urea Nitrogen 5 mg/dl Creatinine 0.52 mg/dl Est Creatinine Clear Calc Drug Dose 126.7 ml/min Estimated GFR () 140.5 Estimated GFR (Non- 121.2 BUN/Creatinine Ratio 10.5 Random Glucose 91 mg/dl Calcium Level 8.0 mg/dl Magnesium Level 1.9 mg/dl Assessment and Plan melena acute blood loss anemia duodenal ulcer CT A/P negative. Continue PPI but concerned about drop in Hgb but no visible vessel seen at time of EGD. Discussed with patient and father regarding doing colonscopy friday to look for other source of GI bleeding. Will continue on clears and start prep tomorrow for colonscopy friday.
[2018-03-21 15:54] VITALS: BP 90/53; PULSE 70; TEMP 36.4; O2SAT 98
[2018-03-21 16:18] LABS: HEMATOCRIT 26.5 % (37-47); HEMOGLOBIN 8.7 g/dL (12.0-16.0)
[2018-03-21] MEDS: FERROUS SULFATE 325 MG TAB PO SCH (17:00)
[2018-03-21 23:25] VITALS: BP 98/66; PULSE 54; TEMP 36.6; O2SAT 99
[2018-03-22] MEDS: PANTOprazole INJ 40 MG in DEXTROSE 5% 100ML IV SCH ×4 (04:47→19:40)
[2018-03-22 05:40] LABS: HEMATOCRIT 24.7 % (37-47); HEMOGLOBIN 7.9 g/dL (12.0-16.0); MEAN CELL VOLUME 84.6 fL (80-100); MEAN CORPUSCULAR HEMOGLOBIN 27.1 pg (25-34); MEAN PLATELET VOLUME 10.3 fL (7.4-10.4); PLATELET COUNT 219 K/uL (130-400); RED CELL DISTRIBUTION WIDTH SD 61.9 fL (36.4-46.3); WHITE BLOOD COUNT 5.18 K/uL (4.8-10.8)
[2018-03-22 06:07] LABS: CALCIUM 8.1 mg/dl (8.5-10.1); CREATININE 0.59 mg/dl (0.60-1.20); POTASSIUM 3.8 mmol/L (3.5-5.1)
[2018-03-22 07:17] VITALS: BP 102/64; PULSE 60; TEMP 36.6; O2SAT 99
[2018-03-22 08:00] VITALS: O2SAT 91
[2018-03-22] MEDS: FERROUS SULFATE 325 MG TAB PO SCH ×2 (08:06→12:24)
[2018-03-22] MEDS ORDERED: BISACODYL 5 MG TABEC PO ONE (13:15)
--- NOTE | 2018-03-22 13:40 | Gastroenterology Progress Note ---
Progress Note Date of Service: Mar 22, 2018 Subjective Pt evaluation today including: conversation w/ patient, conversation w/ family (father), physical exam, chart review, lab review, review of studies, review of inpatient medication list CC f/u GI bleedinig HPI The patient saved a stool specimen and is black tar. Hgb down today. She denies abd pain. Review of Systems Respiratory: No shortness of breath Cardiac: No chest pain Medications Current Inpatient Medications Medications (Trade) Dose Ordered Sig/Bal Route Start Time Stop Time Status Last Admin Dose Admin Pantoprazole Sodium 40 mg/ Dextrose 100 ml @ 20 mls/hr Q5H IV 03/18/18 18:00 04/17/18 17:59 03/22/18 08:07 20 MLS/HR Ioversol (Optiray 320) 100 ml UD PRN IV 03/20/18 17:45 03/24/18 17:44 Ferrous Sulfate (Feosol Tab) 325 mg TIDM PO 03/21/18 17:00 04/20/18 16:59 03/22/18 12:24 325 MG Polyethylene Glycol/ Electrolytes (Golytely Soln) 16 dose 1500 PO 03/22/18 15:00 03/22/18 15:01 Objective Vital Signs Date Time Temp Pulse Resp B/P (MAP) Pulse Ox O2 Delivery O2 Flow Rate FiO2 03/22/18 08:00 91 Room Air 03/22/18 07:17 36.6 60 16 102/64 (77) 99 Room Air 03/22/18 00:00 Room Air 03/21/18 23:25 36.6 54 20 98/66 (77) 99 Room Air 03/21/18 16:00 Room Air 03/21/18 15:54 36.4 70 18 90/53 (65) 98 Room Air Physical Exam General Appearance: WD/WN, no apparent distress Respiratory/Chest: lungs clear, no respiratory distress Cardiovascular: regular rate, rhythm, no edema Abdomen: normal bowel sounds, non tender, soft Neurologic/Psych: normal mood/affect, oriented x 3 Skin: normal color Laboratory Results Last 24 Hours Test 03/21/18 16:08 03/22/18 05:23 Hemoglobin 8.7 g/dL 7.9 g/dL Hematocrit 26.5 % 24.7 % White Blood Count 5.18 K/uL Red Blood Count 2.92 M/uL Mean Corpuscular Volume 84.6 fL Mean Corpuscular Hemoglobin 27.1 pg Mean Corpuscular Hemoglobin Concent 32.0 g/dl RDW Standard Deviation 61.9 fL RDW Coefficient of Variation 20.0 % Platelet Count 219 K/uL Mean Platelet Volume 10.3 fL Sodium Level 141 mmol/L Potassium Level 3.8 mmol/L Chloride Level 109 mmol/L Carbon Dioxide Level 27 mmol/L Anion Gap 5.0 mmol/L Blood Urea Nitrogen 4 mg/dl Creatinine 0.59 mg/dl Est Creatinine Clear Calc Drug Dose 111.7 ml/min Estimated GFR () 134.8 Estimated GFR (Non- 116.3 BUN/Creatinine Ratio 7.3 Random Glucose 94 mg/dl Calcium Level 8.1 mg/dl Magnesium Level 2.0 mg/dl Free Triiodothyronine 2.62 pg/ml Assessment and Plan melena acute blood loss anemia--wore duodenal ulcer--PPI Colonoscopy tomorrow 03/23/18Friday. Procedure and risks explained which include but not limited to med reaction, bleeding, perforation.
--- NOTE | 2018-03-22 13:54 | Progress Note ---
Internal Med Progress Note Date of Service: Mar 22, 2018. Provider Documentation: SUBJECTIVE: The patient was seen and examined in ICU Complains of tiredness and fatigue Denies any chest pain palpitation, any abdominal pain nausea and/or vomiting Used Excedrin and Pepto-Bismol for symptomatic relief 03/20- Much better this Am Except tiredness Denies any complaints Hb was noted to be low this AM No more abdominal pain 03/22_ remains stable but Hb dropped further to 7.9 No more abdominal pain and or blood per rectum OBJECTIVE: Vital Signs-as noted below Exam: General-No apparent distress Eyes-normal ENT-normal Neck-supple Lungs-clear to auscultate bilaterally Heart-S1-S2 regular, no murmur appreciated Abdomen-benign, mildly tender in epigastrium, bowel sounds present Extremities-no edema Neuro-AAA 3 Generally weak but no focal neuro deficit Lab data as noted below. ASSESSMENT & PLAN: NONBLEEDING DUODENA ULCER PROFOUND ANEMIA UPPER GI BLEED-NSAID induced -Patient presenting with altered mental status, vomiting, diarrhea; in the ED found to have a hemoglobin of 2.6 -Per father's report, patient has been taking several doses of Excedrin Migraine for headaches; suspect NSAID induced gastritis -Protonix drip -Received 6 units of PRBC -Appreciate GI evaluation -Endoscopy on 03/19-Nonbleeding Duodenal ulcer -injected with epinephrine -transfer to [place] -Clinically better but Hb dropped to 8.7 -no Hematemesis but melena(expected) -stool for HP sent -recheck Hb at 4 PM and Tomorrow -Hb dropped to 7.9 -will have Colonoscopy tomorrow Iron Deficiency Anemia Received 6 units of PRBC Will start Oral iron May need parenteral Iron ELEVATED TROPONIN -Mildly elevated at 0.077 -Likely demand ischemia from profound anemia -Will continue to cycle cardiac enzymes-minimally high -EKG shows early repolarization changes, again likely due to profound anemia -Doubt any ACS ABNORMAL TSH -Noted normal free T4 and Normal T3 -Recommend rechecking once acute illness has resolved -TSH is reflective to the current illness DVT PROPHYLAXIS -SCDs due to profound anemia DISPOSITION Transfer to [place] Likely discharge tomorrow Family updated Vital Signs: Date Time Temp Pulse Resp B/P (MAP) Pulse Ox O2 Delivery O2 Flow Rate FiO2 03/22/18 08:00 91 Room Air 03/22/18 07:17 36.6 60 16 102/64 (77) 99 Room Air 03/22/18 00:00 Room Air 03/21/18 23:25 36.6 54 20 98/66 (77) 99 Room Air 03/21/18 16:00 Room Air 03/21/18 15:54 36.4 70 18 90/53 (65) 98 Room Air Lab Results: Results Past 24 Hours Test 03/21/18 16:08 03/22/18 05:23 Range/Units Hemoglobin 8.7 7.9 12.0-16.0 g/dL Hematocrit 26.5 24.7 37-47 % White Blood Count 5.18 4.8-10.8 K/uL Red Blood Count 2.92 4.2-5.4 M/uL Mean Corpuscular Volume 84.6 80-100 fL Mean Corpuscular Hemoglobin 27.1 25-34 pg Mean Corpuscular Hemoglobin Concent 32.0 32-36 g/dl RDW Standard Deviation 61.9 36.4-46.3 fL RDW Coefficient of Variation 20.0 11.5-14.5 % Platelet Count 219 130-400 K/uL Mean Platelet Volume 10.3 7.4-10.4 fL Sodium Level 141 136-145 mmol/L Potassium Level 3.8 3.5-5.1 mmol/L Chloride Level 109 98-107 mmol/L Carbon Dioxide Level 27 21-32 mmol/L Anion Gap 5.0 3-11 mmol/L Blood Urea Nitrogen 4 7-18 mg/dl Creatinine 0.59 0.60-1.20 mg/dl Est Creatinine Clear Calc Drug Dose 111.7 ml/min Estimated GFR () 134.8 Estimated GFR (Non- 116.3 BUN/Creatinine Ratio 7.3 10-20 Random Glucose 94 70-99 mg/dl Calcium Level 8.1 8.5-10.1 mg/dl Magnesium Level 2.0 1.8-2.4 mg/dl Free Triiodothyronine 2.62 2.30-4.20 pg/ml
[2018-03-22] MEDS ORDERED: LAVAGE SOLUTION 4000ML PO SCH (15:00)
[2018-03-22 16:03] VITALS: BP 93/59; PULSE 59; TEMP 36.4; O2SAT 100
[2018-03-22 23:04] VITALS: BP 95/60; PULSE 56; TEMP 36.5; O2SAT 98
[2018-03-23] MEDS: PANTOprazole INJ 40 MG in DEXTROSE 5% 100ML IV SCH ×5 (00:16→21:11)
--- NOTE | 2018-03-23 04:54 | Progress Note ---
Post ICU Progress Note Date & Time Mar 23, 2018 at 04:50 Vital Signs Vital Signs Past 12 Hours Date Time Temp Pulse Resp B/P (MAP) Pulse Ox O2 Delivery O2 Flow Rate FiO2 03/23/18 00:00 Room Air 03/22/18 23:04 36.5 56 16 95/60 (72) 98 Room Air Notes Mental Status: see Notes Nausea / Vomiting: adequately controlled Pain: adequately controlled Airway Patency, RR, SpO2: stable & adequate BP & HR: stable & adequate Patient is a 37-year-old female who was initially admitted to the ICU for profound anemia with an H&H of 2.6 and 9.8 on presentation. She responded well to PRBC transfusion and subsequently underwent upper endoscopy which demonstrated a duodenal ulcer which was locally injected with epinephrine. No other significant source of bleeding were detected. The patient was downgraded from the ICU. Since that time, the patient has reportedly had persistent drops in her H&H requiring transfusions. Per GI records, the patient is currently prepping for colonoscopy to be performed later today. Otherwise, she is maintained hemodynamic stability throughout the remainder of her visit. On evaluation, the patient is resting comfortably. She is asleep. Her GoLYTELY container is sitting beside her bed. I did not wish to awaken the patient for evaluation at this point as she is to undergo upper endoscopy today. Consider outpatient follow up in 1 to 2 weeks with: GI, PCP Repeat imaging needed: Per GI/admitting services Follow up cultures: None Reviewed progress notes, labs, and inpatient medication list Continue current management Additional recommendations: No further recommendations from an ICU standpoint. Thank you for allowing us to participate in the care of this patient. At this time, Critical Care Services will sign off on this case. Please feel free to reconsult as needed. Consults & Procedures Consultants: GI - Gamaliel/[place]
[2018-03-23 05:57] LABS: BASO % 0.4 %; BASO ABS # 0.02 K/uL (0-0.2); EOS % 3.7 %; EOS ABS # 0.19 K/uL (0-0.5); HEMATOCRIT 25.6 % (37-47); HEMOGLOBIN 8.1 g/dL (12.0-16.0); IG# 0.01 K/uL (0.00-0.02); LYMPH % 43.1 %; LYMPH ABS # 2.21 K/uL (1.2-3.4); MEAN CELL VOLUME 85.6 fL (80-100); MEAN CORPUSCULAR HEMOGLOBIN 27.1 pg (25-34); MEAN CORPUSCULAR HGB CONC 31.6 g/dl (32-36); MONO % 7.2 %; MONO ABS # 0.37 K/uL (0.11-0.59); NEUT % 45.4 %; NEUT ABS # 2.33 K/uL (1.4-6.5); PLATELET COUNT 266 K/uL (130-400); RED CELL DISTRIBUTION WIDTH CV 20.7 % (11.5-14.5); RED CELL DISTRIBUTION WIDTH SD 63.6 fL (36.4-46.3); WHITE BLOOD COUNT 5.13 K/uL (4.8-10.8)
[2018-03-23 06:32] LABS: ALBUMIN 2.3 gm/dl (3.4-5.0); CALCIUM 8.1 mg/dl (8.5-10.1); CREATININE 0.62 mg/dl (0.60-1.20); POTASSIUM 3.9 mmol/L (3.5-5.1)
[2018-03-23 06:35] LABS: TOTAL PROTEIN 4.7 gm/dl (6.4-8.2)
[2018-03-23 07:23] VITALS: BP 100/63; PULSE 60; TEMP 36.6; O2SAT 100
[2018-03-23] MEDS: SODIUM CHLORIDE 0.9% 1000ML 1,000 ML IV SCH ×2 (07:52→21:29)
[2018-03-23 08:00] VITALS: O2SAT 100
--- NOTE | 2018-03-23 12:31 | Progress Note ---
Internal Med Progress Note Date of Service: Mar 23, 2018. Provider Documentation: SUBJECTIVE: The patient was seen and examined in ICU Complains of tiredness and fatigue Denies any chest pain palpitation, any abdominal pain nausea and/or vomiting Used Excedrin and Pepto-Bismol for symptomatic relief 03/20- Much better this Am Except tiredness Denies any complaints Hb was noted to be low this AM No more abdominal pain 03/22_ remains stable but Hb dropped further to 7.9 No more abdominal pain and or blood per rectum 03/23-Bowel moved ,no more blood Clinically better without any symptoms OBJECTIVE: Vital Signs-as noted below Exam: General-No apparent distress Eyes-normal ENT-normal Neck-supple Lungs-clear to auscultate bilaterally Heart-S1-S2 regular, no murmur appreciated Abdomen-benign, mildly tender in epigastrium, bowel sounds present Extremities-no edema Neuro-AAA 3 Generally weak but no focal neuro deficit Lab data as noted below. ASSESSMENT & PLAN: NONBLEEDING DUODENA ULCER PROFOUND ANEMIA UPPER GI BLEED-NSAID induced -Patient presenting with altered mental status, vomiting, diarrhea; in the ED found to have a hemoglobin of 2.6 -Per father's report, patient has been taking several doses of Excedrin Migraine for headaches; suspect NSAID induced gastritis -Protonix drip -Received 6 units of PRBC -Appreciate GI evaluation -Endoscopy on 03/19-Nonbleeding Duodenal ulcer -injected with epinephrine -transfer to [place] -Clinically better but Hb dropped to 8.7 -no Hematemesis but melena(expected) -stool for HP sent -recheck Hb at 4 PM and Tomorrow -Hb dropped to 7.9 -Hb remains stable -awaiting Colonoscopy today Iron Deficiency Anemia Received 6 units of PRBC Will start Oral iron May need parenteral Iron ELEVATED TROPONIN -Mildly elevated at 0.077 -Likely demand ischemia from profound anemia -Will continue to cycle cardiac enzymes-minimally high -EKG shows early repolarization changes, again likely due to profound anemia -Doubt any ACS ABNORMAL TSH -Noted normal free T4 and Normal T3 -Recommend rechecking once acute illness has resolved -TSH is reflective to the current illness -can be rechecked in 2-3 weeks DVT PROPHYLAXIS -SCDs due to profound anemia DISPOSITION Transfer to [place] Likely discharge tomorrow Family updated Vital Signs: Date Time Temp Pulse Resp B/P (MAP) Pulse Ox O2 Delivery O2 Flow Rate FiO2 03/23/18 08:00 100 Room Air 03/23/18 07:23 36.6 60 20 100/63 (75) 100 Room Air 03/23/18 00:00 Room Air 03/22/18 23:04 36.5 56 16 95/60 (72) 98 Room Air 03/22/18 16:20 Room Air 03/22/18 16:03 36.4 59 16 93/59 (70) 100 Room Air Lab Results: Results Past 24 Hours Test 03/23/18 05:36 Range/Units White Blood Count 5.13 4.8-10.8 K/uL Red Blood Count 2.99 4.2-5.4 M/uL Hemoglobin 8.1 12.0-16.0 g/dL Hematocrit 25.6 37-47 % Mean Corpuscular Volume 85.6 80-100 fL Mean Corpuscular Hemoglobin 27.1 25-34 pg Mean Corpuscular Hemoglobin Concent 31.6 32-36 g/dl Platelet Count 266 130-400 K/uL Mean Platelet Volume 10.0 7.4-10.4 fL Neutrophils (%) (Auto) 45.4 % Lymphocytes (%) (Auto) 43.1 % Monocytes (%) (Auto) 7.2 % Eosinophils (%) (Auto) 3.7 % Basophils (%) (Auto) 0.4 % Neutrophils # (Auto) 2.33 1.4-6.5 K/uL Lymphocytes # (Auto) 2.21 1.2-3.4 K/uL Monocytes # (Auto) 0.37 0.11-0.59 K/uL Eosinophils # (Auto) 0.19 0-0.5 K/uL Basophils # (Auto) 0.02 0-0.2 K/uL RDW Standard Deviation 63.6 36.4-46.3 fL RDW Coefficient of Variation 20.7 11.5-14.5 % Immature Granulocyte % (Auto) 0.2 % Immature Granulocyte # (Auto) 0.01 0.00-0.02 K/uL Giant Platelets 1+ Hypochromasia PRESENT Anisocytosis PRESENT Sodium Level 142 136-145 mmol/L Potassium Level 3.9 3.5-5.1 mmol/L Chloride Level 108 98-107 mmol/L Carbon Dioxide Level 29 21-32 mmol/L Anion Gap 5.0 3-11 mmol/L Blood Urea Nitrogen 4 7-18 mg/dl Creatinine 0.62 0.60-1.20 mg/dl Est Creatinine Clear Calc Drug Dose 106.3 ml/min Estimated GFR () 132.6 Estimated GFR (Non- 114.4 BUN/Creatinine Ratio 6.0 10-20 Random Glucose 77 70-99 mg/dl Calcium Level 8.1 8.5-10.1 mg/dl Total Bilirubin 0.3 0.2-1 mg/dl Aspartate Amino Transf (AST/SGOT) 9 15-37 U/L Alanine Aminotransferase (ALT/SGPT) 16 12-78 U/L Alkaline Phosphatase 45 45-117 U/L Total Protein 4.7 6.4-8.2 gm/dl Albumin 2.3 3.4-5.0 gm/dl Globulin 2.4 2.5-4.0 gm/dl Albumin/Globulin Ratio 1.0 0.9-2
--- NOTE | 2018-03-23 14:31 | Endo History and Physical ---
History & Physical Date of Service: Mar 23, 2018. Chief Complaint: melena Referring Physician: Dr Raman History of Present Illness For colonoscopy Past Surgical History Hx Cardiac Surgery: No Hx Abdominal Surgery: No Hx Post-Op Nausea and Vomiting: No Hx Cancer Surgery: No Hx Thoracic Surgery: No Hx Orthopedic: No Hx Urinary Tract Surgery: No Social History Smoking Status: Never Smoker Hx Substance Use: No Hx Alcohol Use: No Allergies Coded Allergies: No Known Allergies (Unverified , 03/18/18) Current Medications Reported Home Medications Medications Dose Route/Sig Max Daily Dose Days Date Category Imodium (Loperamide HCl) 2 Mg Cap 1 Dose PO UD 03/18/18 Reported Pepto-Bismol (Bismuth Subsalicylate) 262 Mg/15 Ml Elaine 1 Dose PO UD 03/18/18 Reported Excedrin Migraine (Qrihspr-Exsitpqfyimcu-Gztvzfwt) 1 Tab Tab 1 Dose PO UD 03/18/18 Reported Vital Signs Weight (Kilograms): 55.900 Height (Feet): 5 Height (Inches): 4.00 Date Time Temp Pulse Resp B/P (MAP) Pulse Ox O2 Delivery O2 Flow Rate FiO2 03/23/18 14:24 36.6 58 18 97/56 (70) 98 Room Air 03/23/18 08:00 100 Room Air 03/23/18 07:23 36.6 60 20 100/63 (75) 100 Room Air 03/23/18 00:00 Room Air 03/22/18 23:04 36.5 56 16 95/60 (72) 98 Room Air 03/22/18 16:20 Room Air 03/22/18 16:03 36.4 59 16 93/59 (70) 100 Room Air Physical Exam General Appearance: WD/WN Respiratory/Chest: Respiratory effort: no dyspnea Cardiovascular: Heart Auscultation: RRR Abdomen: Inspection & Palpation: soft Assessment and Plan melena for colonoscopy
--- NOTE | 2018-03-23 14:57 | Discharge Instructions ---
Endoscopy Patient Instructions Date / Procedure(s) Performed Mar 23, 2018. Colonoscopy Allergy Information Coded Allergies: No Known Allergies (Unverified , 03/18/18) Discharge Date / Findings Mar 23, 2018. Normal colon Medication Instructions Restart Stopped Medication(s): resume meds Current Inpatient Medications Medications (Trade) Dose Ordered Sig/Bal Route Start Time Stop Time Status Last Admin Dose Admin Pantoprazole Sodium 40 mg/ Dextrose 100 ml @ 20 mls/hr Q5H IV 03/18/18 18:00 04/17/18 17:59 03/23/18 10:24 20 MLS/HR Ioversol (Optiray 320) 100 ml UD PRN IV 03/20/18 17:45 03/24/18 17:44 Sodium Chloride 1,000 ml @ 75 mls/hr [id number] IV 03/23/18 08:00 04/22/18 07:59 03/23/18 07:52 75 MLS/HR Provider Instructions Activity Restrictions - No exercising or heavy lifting for 24 hours. - Do not drink alcohol the day of the procedure. - Do not drive a car or operate machinery until the day after the procedure. - Do not make any important decisions or sign important papers in 24 hours after the procedure. Following Day: - Return to full activity which may include returning to work/school. Diet Start your diet with liquids and light foods (jello, soup, juice, toast). Then eat your usual diet if not nauseated. Treatment For Common After Affects For mild abdominal pain, bloating, or excessive gas: - Rest - Eat lightly - Lie on right side Follow-Up Information Follow-up with as scheduled Anesthesia Information What You Should Know You have had a procedure that required some medicine to reduce anxiety and discomfort. This treatment is called moderate sedation. After receiving the treatment, you may be sleepy, but you will be able to breathe on your own. The effects of the treatment may last for several hours. Follow these instructions along with Activity/Diet recommendations noted above: * Do NOT do anything where dizziness or clumsiness would be dangerous. * Rest quietly at home today, then you can be up and about tomorrow. * Have a responsible person stay with you the rest of today. * You may have had an I.V. today. If so, you may take the dressing off later today. Recommendations Call your doctor if: * Trouble breathing * Continuous vomiting for more than 24 hours * Temperature above 101 degrees * Severe abdominal pain or bloating * Pain not relieved by pain medicine ordered * There is increased drainage or redness from any incision * A large amount of rectal bleeding greater than 2-3 tablespoons. (If you had a polyp/s removed or have hemorrhoids, a small amount of blood - from the rectum is to be expected.) * You have any unanswered questions or concerns. IN THE EVENT OF A SERIOUS EMERGENCY, GO TO THE NEAREST EMERGENCY ROOM Your discharge instructions were prepared by provider Frank Alston. Patient Instructions Signature Page Nadeen Posada Patient (or Guardian) Signature/Date: I have read and understand the instructions given to me by my caregivers. Caregiver/RN/Doctor Signature/Date: The above-named patient and/or guardian has received patient instructions on this date. + Original Patient Signature Page (only) stays with chart. Please make copy for patient.
--- NOTE | 2018-03-23 14:59 | GI REPORT ---
Procedure Date: 03/23/2018 2:26 PM Procedure: Colonoscopy Indications: Melena Medicines: Propofol total dose 260 mg IV, Lidocaine 40 mg IV Complications: No immediate complications. Estimated Blood Loss: Estimated blood loss: none. Procedure: Pre-Anesthesia Assessment: - Prior to the procedure, a History and Physical was performed, and patient medications, allergies and sensitivities were reviewed. The patient's tolerance of previous anesthesia was reviewed. - The risks and benefits of the procedure and the sedation options and risks were discussed with the patient. All questions were answered and informed consent was obtained. - The risks and benefits of the procedure and the sedation options and risks were discussed with the patient. All questions were answered and informed consent was obtained. After I obtained informed consent, the scope was passed under direct vision. Throughout the procedure, the patient's blood pressure, pulse, and oxygen saturations were monitored continuously. The scope was introduced through the anus and advanced to the terminal ileum. The colonoscopy was performed without difficulty. The patient tolerated the procedure well. The quality of the bowel preparation was good. Findings: The entire examined colon appeared normal. Impression: - The entire examined colon is normal. - No specimens collected. Recommendation: - Return patient to [facility] for ongoing care. Frank Alston M.D. Frank Alston MD 03/23/2018 2:58:49 PM This report has been signed electronically. Note Initiated On: 03/23/2018 2:26 PM I attest to the content of the Intraoperative Record and orders documented therein, exceptions below
--- NOTE | 2018-03-23 15:17 | Anesthesiology Progress Note ---
Anesthesia Post Op Note Date & Time Mar 23, 2018 at 15:17 Vital Signs Pain Intensity: 0 Vital Signs Past 12 Hours Date Time Temp Pulse Resp B/P (MAP) Pulse Ox O2 Delivery O2 Flow Rate FiO2 03/23/18 15:12 62 18 87/47 (60) 100 Room Air 03/23/18 15:02 56 18 102/62 (75) 100 Room Air 03/23/18 14:24 36.6 58 18 97/56 (70) 98 Room Air 03/23/18 08:00 100 Room Air 03/23/18 07:23 36.6 60 20 100/63 (75) 100 Room Air Notes Mental Status: alert / awake / arousable, participated in evaluation Pt Amnestic to Procedure: Yes Nausea / Vomiting: adequately controlled Pain: adequately controlled Airway Patency, RR, SpO2: stable & adequate BP & HR: stable & adequate Hydration State: stable & adequate Anesthetic Complications: no major complications apparent BP 100/63 on discharge, patient feels well with no complaints.
[2018-03-23] MEDS ORDERED: LIDOCAINE HCL 2% 2 ML VIAL (20MG/ML) ONE (15:28)
[2018-03-23] MEDS ORDERED: PROPOFOL IV EMULSION 10 MG/ML 20 ML VIAL IV ONE (15:28)
[2018-03-23 16:00] VITALS: O2SAT 100
--- NOTE | 2018-03-23 17:23 | PROGRESS NOTE ---
DATE: 03/23/2018 The patient underwent a colonoscopy today to evaluate ongoing melena. During the colonoscopy, the patient had no blood or melena in her colon. The colon was examined all the way to the end and there was no source of blood loss identified indicating that her melena was probably old blood coming from the duodenal ulcer that was identified previously. Her stool H. pylori is negative indicating that the duodenal ulcer, most likely was a result of her taking Excedrin. The patient will continue on proton pump inhibitors and bland diet.
[2018-03-23 23:21] VITALS: BP 101/59; PULSE 66; TEMP 36.6; O2SAT 98
[2018-03-24] MEDS: PANTOprazole INJ 40 MG in DEXTROSE 5% 100ML IV SCH ×3 (02:02→10:57)
[2018-03-24 07:04] VITALS: BP 100/62; PULSE 58; TEMP 36.6; O2SAT 99
[2018-03-24 07:08] LABS: HEMATOCRIT 25.5 % (37-47); HEMOGLOBIN 7.9 g/dL (12.0-16.0); MEAN CELL VOLUME 86.1 fL (80-100); MEAN CORPUSCULAR HEMOGLOBIN 26.7 pg (25-34); MEAN PLATELET VOLUME 9.6 fL (7.4-10.4); PLATELET COUNT 276 K/uL (130-400); RED CELL DISTRIBUTION WIDTH CV 20.3 % (11.5-14.5); RED CELL DISTRIBUTION WIDTH SD 63.8 fL (36.4-46.3); WHITE BLOOD COUNT 4.71 K/uL (4.8-10.8)
[2018-03-24 07:43] LABS: CALCIUM 7.7 mg/dl (8.5-10.1); CREATININE 0.72 mg/dl (0.60-1.20); POTASSIUM 4.1 mmol/L (3.5-5.1)
[2018-03-24 07:44] LABS: PHOSPHORUS 4.7 mg/dl (2.5-4.9)
[2018-03-24 08:00] VITALS: O2SAT 100
[2018-03-24] MEDS: SODIUM CHLORIDE 0.9% 1000ML 1,000 ML IV SCH (10:40)
--- NOTE | 2018-03-24 12:04 | Progress Note ---
Subjective Date of Service: Mar 24, 2018. Subjective Pt evaluation today including: conversation w/ patient, physical exam, lab review, review of studies, review of inpatient medication list Saw/examined the patient in room 251 She's doing well, tolerated abdominal pain, nausea/vomiting/fevers/chills Denies dizziness, chest pain/shortness of breath Review of Systems Constitutional: No fever, No chills Respiratory: No cough, No sputum, No shortness of breath Cardiac: No chest pain, No edema, No palpitations Abdomen: No pain, No nausea, No vomiting, No diarrhea, No constipation, No GI bleeding (resolved) Female : No dysuria, No urinary frequency Heme: No abnormal bleeding/bruising Medications Current Inpatient Medications Medications (Trade) Dose Ordered Sig/Bal Route Start Time Stop Time Status Last Admin Dose Admin Pantoprazole Sodium 40 mg/ Dextrose 100 ml @ 20 mls/hr Q5H IV 03/18/18 18:00 04/17/18 17:59 03/24/18 10:57 20 MLS/HR Ioversol (Optiray 320) 100 ml UD PRN IV 03/20/18 17:45 03/24/18 17:44 Sodium Chloride 1,000 ml @ 75 mls/hr [id number] IV 03/23/18 08:00 04/22/18 07:59 03/23/18 21:29 75 MLS/HR Objective Vital Signs Date Time Temp Pulse Resp B/P (MAP) Pulse Ox O2 Delivery O2 Flow Rate FiO2 03/24/18 08:00 100 Room Air 03/24/18 07:04 36.6 58 18 100/62 (75) 99 Room Air 03/23/18 23:59 Room Air 03/23/18 23:21 36.6 66 18 101/59 (73) 98 Room Air 03/23/18 20:00 Room Air 03/23/18 16:00 100 Room Air 03/23/18 15:26 54 18 99/52 (68) 100 Room Air 03/23/18 15:19 51 18 100/63 (75) 100 Room Air 03/23/18 15:12 62 18 87/47 (60) 100 Room Air 03/23/18 15:02 56 18 102/62 (75) 100 Room Air 03/23/18 14:24 36.6 58 18 97/56 (70) 98 Room Air Physical Exam General Appearance: no apparent distress Respiratory/Chest: lungs clear, normal breath sounds, no respiratory distress, no accessory muscle use Cardiovascular: regular rate, rhythm, no edema, no gallop, no JVD, no murmur Extremities: normal inspection, no pedal edema Neurologic/Psychiatric: no motor/sensory deficits, alert, normal mood/affect, + pertinent finding (mild cognitive dysfunction) Skin: normal color Laboratory Results Last 24 Hours Test 03/24/18 06:49 White Blood Count 4.71 K/uL Red Blood Count 2.96 M/uL Hemoglobin 7.9 g/dL Hematocrit 25.5 % Mean Corpuscular Volume 86.1 fL Mean Corpuscular Hemoglobin 26.7 pg Mean Corpuscular Hemoglobin Concent 31.0 g/dl RDW Standard Deviation 63.8 fL RDW Coefficient of Variation 20.3 % Platelet Count 276 K/uL Mean Platelet Volume 9.6 fL Sodium Level 144 mmol/L Potassium Level 4.1 mmol/L Chloride Level 111 mmol/L Carbon Dioxide Level 29 mmol/L Anion Gap 4.0 mmol/L Blood Urea Nitrogen 4 mg/dl Creatinine 0.72 mg/dl Est Creatinine Clear Calc Drug Dose 91.5 ml/min Estimated GFR () 123.1 Estimated GFR (Non- 106.2 BUN/Creatinine Ratio 4.9 Random Glucose 82 mg/dl Calcium Level 7.7 mg/dl Phosphorus Level 4.7 mg/dl Magnesium Level 1.9 mg/dl Assessment and Plan This is a 37 year old female with a past medical history of mild cognitive dysfunction, long-term NSAID use for migraines - presents with coffee ground emesis, dizziness, diarrhea NSAID induced duodenal ulcer 03/24 - presented with a Hgb of 2.9, s/p total of 6 units of pRBCs - EGD - showed a duodenal ulcer - patient had been using Excedrin excessively - colonoscopy also performed - no acute findings - Hgb now around 7.9 - will discharge with PPI BID and iron supplementation - close outpatient follow-up with PCP and GI - plan to d/c home today Elevated Troponin Demand Ischemia - troponin elevation, peak at 0.4 - likely secondary to above, anemia/GI blood loss - no symptoms at this time; now troponin trending down Abnormal TSH - TSH low, normal Free T4 - recheck TSH in 4-6 weeks as outpatient
[2018-03-24] MEDS ORDERED: PANT40TA PO (12:15)
[2018-03-24] MEDS ORDERED: FRRS300 PO (12:15)
--- NOTE | 2018-03-24 12:18 | Discharge Instructions ---
Discharge Instructions Date of Service Mar 24, 2018. Admission Reason for Admission: Gi Bleed Discharge Discharge Diagnosis / Problem: Upper GI Bleed, Duodenal Ulcer Discharge Goals Goal(s): Decrease discomfort, Improve function, Diagnostic testing, Therapeutic intervention Activity Recommendations Activity Limitations: resume your previous activity . Instructions / Follow-Up Instructions / Follow-Up Please follow-up with Dr. Dorsey (covering for Dr. Friedman) on March 27 at 12:45PM * Please have blood drawn to check your hemoglobin (preferably before your appointment) * You will be on Protonix twice a day to protect your stomach * You will be on iron supplements (ferrous sulfate 325mg twice daily) - if you have any symptoms like constipation, this can likely be taken every other day * Do not take any NSAIDs - including Motrin, ibuprofen, Aleve/Naproxen, Aspirin , etc. Current Hospital Diet Patient's current hospital diet: Regular Diet Discharge Diet Recommended Diet: Regular Diet Procedures Procedures Performed: EGD - duodenal ulcer Colonoscopy Pending Studies Studies pending at discharge: no Medical Emergencies . Who to Call and When: Medical Emergencies: If at any time you feel your situation is an emergency, please call 911 immediately. . Non-Emergent Contact Non-Emergency issues call your: Primary Care Provider . . "Provider Documentation" section prepared by Shivani Ndiaye. .
--- NOTE | 2018-03-24 12:26 | Discharge Summary ---
Discharge Summary Date of Service Mar 24, 2018. Discharge Summary Admission Date: Mar 18, 2018 at 13:14 Discharge Date: Mar 24, 2018 Discharge Disposition: Home Principal Diagnosis: NSAID induced Duodenal Ulcer Medication Reconciliation New Medications: Ferrous Sulfate (Ferrous Sulfate) 325 Mg Tab 325 MG PO BID for 60 Days, #120 TABS Pantoprazole Sodium (Protonix) 40 Mg Tab 40 MG PO BID for 30 Days, #60 TAB Discontinued Medications: Quvsofa-Axyqsyezcemfe-Pojxvstk (Excedrin Migraine) 1 Tab Tab 1 DOSE PO UD Bismuth Subsalicylate (Pepto-Bismol) 262 Mg/15 Ml Elaine 1 DOSE PO UD Loperamide Hcl (Imodium) 2 Mg Cap 1 DOSE PO UD, CAP Admission Information HPI (per Admitting provider): 37-year-old female who presents to the ER with altered mental status, vomiting, diarrhea. History is obtained from patient's father who is the bedside. Patient does have a mild underlying intellectual disability. He reports that over the past couple days patient has not felt well and has reported lightheadedness, dizziness, nausea, vomiting, diarrhea. He reports she has had several episodes of emesis. He describes it as dark and coffee-ground like. Her stools have also been very dark/black as well. This morning he found the patient and reports that she was extremely weak and also was not responding well. She takes a lot of Excedrin Migraine for headaches. Also reports she has been taking a lot of Mylanta over the past couple weeks for GI upset. During exam, patient is lethargic but arouses to verbal stimuli. She responds to simple yes/no questions. She denies fever and chills. No chest pain or shortness of breath. She denies urinary symptoms. In the ED, patient is found to have a hemoglobin of 2.6. Blood pressures have been relatively stable and heart rate has been in the 110's to 120s. Patient was given IVF and started a Protonix drip. She was also typed and crossed for blood. Physical Exam (per Admitting): General Appearance: WD/WN, + moderate distress Head: normocephalic, atraumatic Eyes: normal inspection, EOMI, sclerae normal ENT: hearing grossly normal, + pertinent finding (Mucous membranes dry) Neck: supple, no JVD, trachea midline Respiratory/Chest: lungs clear, normal breath sounds, no respiratory distress Cardiovascular: no edema, normal peripheral pulses, + tachycardia (Regular rhythm) Abdomen/GI: normal bowel sounds, non tender, soft, no organomegaly Extremities/Musculoskelatal: normal inspection, no calf tenderness, normal capillary refill Neurologic/Psych: no motor/sensory deficits, oriented x 3, + pertinent finding (Mildly lethargic, arouses easily to verbal stimuli, answers simple yes/ no questions) Skin: warm/dry, + pallor Hospital Course This is a 37 year old female with a past medical history of mild cognitive dysfunction, long-term NSAID use for migraines - presents with coffee ground emesis, dizziness, diarrhea NSAID induced duodenal ulcer 03/24 - presented with a Hgb of 2.9, s/p total of 6 units of pRBCs - EGD - showed a duodenal ulcer - patient had been using Excedrin excessively - colonoscopy also performed - no acute findings - Hgb now around 7.9 - will discharge with PPI BID and iron supplementation - close outpatient follow-up with PCP and GI - plan to d/c home today Elevated Troponin Demand Ischemia - troponin elevation, peak at 0.4 - likely secondary to above, anemia/GI blood loss - no symptoms at this time; now troponin trending down Abnormal TSH - TSH low, normal Free T4 - recheck TSH in 4-6 weeks as outpatient Total time spent on discharge = 45 minutes This includes examination of the patient, discharge planning, medication reconciliation, and communication with other providers. Discharge Instructions Please follow-up with Dr. Dorsey (covering for Dr. Friedman) on March 27 at 12:45PM * Please have blood drawn to check your hemoglobin (preferably before your appointment) * You will be on Protonix twice a day to protect your stomach * You will be on iron supplements (ferrous sulfate 325mg twice daily) - if you have any symptoms like constipation, this can likely be taken every other day * Do not take any NSAIDs - including Motrin, ibuprofen, Aleve/Naproxen, Aspirin , etc.
[2018-03-24 13:20] VITALS: BP 100/62; PULSE 58; TEMP 36.6; O2SAT 100
== END 2018-03-24 14:27 | disposition home or self-care (01) | DRG 384 ==
LOC: EDBD 12:04 → C.EDC 12:06 → C.MSICU 13:14 → ENRESERV 13:20 → C.MS2W 03-20 13:33
PROVIDERS: ADMIT Hospitalist; ATTEND Family Medicine
PROC: 0DJ08ZZ Inspection of Upper Intestinal Tract, Via Natural or Artificial Opening Endoscopic (ICD-10-PCS; principal; 2018-03-19 14:00)
PROC: 0DJD8ZZ Inspection of Lower Intestinal Tract, Via Natural or Artificial Opening Endoscopic (ICD-10-PCS; 2018-03-23)
DX: K26.9 Duodenal ulcer, unspecified as acute or chronic, without hemorrhage or perforation (principal); I24.8 Other forms of acute ischemic heart disease; T39.395A Adverse effect of other nonsteroidal anti-inflammatory drugs [NSAID], initial encounter; D50.9 Iron deficiency anemia, unspecified; K92.2 Gastrointestinal hemorrhage, unspecified; F70 Mild intellectual disabilities; R55 Syncope and collapse; R79.89 Other specified abnormal findings of blood chemistry; Z82.49 Family history of ischemic heart disease and other diseases of the circulatory system; Z80.8 Family history of malignant neoplasm of other organs or systems